=== PATIENT | male | born 1950 ===

== ENCOUNTER → 2021-06-16 09:14 | Outpatient (BNVA) | payer MEDICARE, SELFPAY | PROVIDERS: PCP Internal Medicine; Visit Provider Hospitalist | DX: I27.20 Pulmonary hypertension, unspecified (principal); G14 Postpolio syndrome; G47.33 Obstructive sleep apnea (adult) (pediatric); J96.11 Chronic respiratory failure with hypoxia; J98.4 Other disorders of lung; J30.0 Vasomotor rhinitis; G70.9 Myoneural disorder, unspecified; Z99.81 Dependence on supplemental oxygen | CPT/HCPCS: 99202 ==

== ENCOUNTER 2021-07-21 08:48 | Outpatient (REF) | payer MEDICARE, SELFPAY ==
--- NOTE | ~2021-07-21 | XR_ITS ---
EXAMINATION: XR CHEST CLINICAL INFORMATION: Other disorder of lung COMPARISON: None TECHNIQUE: 2 views of the chest were obtained. FINDINGS: There is a severe scoliosis. There is elevation of the right hemidiaphragm. The heart does not appear enlarged. The lungs are clear. There is no pleural effusion or pneumothorax. There are old right posterior rib fractures. There are degenerative changes of the spine. XR/XR chest 2V IMPRESSION: Limited exam. No evidence for acute disease in the chest. Severe scoliosis.
--- NOTE | 2021-07-21 13:34 | PFT_ITS ---
FLOWS: FEV1 43% of predicted at 0.98 L. FVC 29% of predicted at 1.17 L. FEV1 to FVC ratio of 0.84. No bronchodilator response. LUNG VOLUMES: Total lung capacity 44% of predicted at 2.84 L. Residual volume 73% of predicted at 1.66 L. Slow vital capacity 28% of predicted at 1.18 L. Expiratory reserve volume 7% of predicted at 0.09 L. Diffusion capacity is severely decreased, diffusion capacity adjust to being mildly decreased after correction for alveolar ventilation. IMPRESSION: Very severe restrictive ventilatory defect with no bronchodilator response. Decreased expiratory reserve volume suggests extrathoracic restriction, likely secondary to abdominal obesity. Combined decrease in diffusion capacity and restrictive ventilatory defect. Suggest underlying pulmonary parenchymal disease. Clinical correlation is advised. MD IRIS Swartz/MODL / [id number]
== END 2021-07-21 08:49 | disposition home or self-care (01) ==
LOC: HO.RESP 08:48
PROVIDERS: PCP Internal Medicine; Visit Provider Hospitalist
DX: J98.4 Other disorders of lung (principal); G70.9 Myoneural disorder, unspecified
CPT/HCPCS: 71046; 94060; 94727; 94729

== ENCOUNTER → 2021-08-11 08:56 | Outpatient (BNVA) | payer MEDICARE, SELFPAY | PROVIDERS: PCP Internal Medicine; Visit Provider Hospitalist | DX: G14 Postpolio syndrome (principal); G47.33 Obstructive sleep apnea (adult) (pediatric); J96.11 Chronic respiratory failure with hypoxia; J98.4 Other disorders of lung; J30.0 Vasomotor rhinitis; G70.9 Myoneural disorder, unspecified; I27.20 Pulmonary hypertension, unspecified; Z99.81 Dependence on supplemental oxygen | CPT/HCPCS: 99212 ==

== ENCOUNTER 2022-02-02 10:50 | Outpatient (REF) | payer MEDICARE, SELFPAY ==
[2022-02-02 11:04] LABS: MANUAL DIFF FLAG NO
[2022-02-02 11:10] LABS: Venous Blood Gas Refer to POC result
[2022-02-02 11:14] LABS: Basophils Percent Auto 0.4 % (0-2); Eosinophils Absolute Auto 0.1 X10*3/uL (0.0-0.4); Eosinophils Percent Auto 1.5 % (0-4); Hematocrit 41.6 % (42.0-52.0); Hemoglobin 13.4 g/dl (14.0-18.0); Imm Gran Abs Auto 0.03 X10*3/uL (0.00-0.03); Imm Gran Pct Auto 0.6 % (0.0-0.4); Lymphocytes Percent Auto 18.6 % (20-40); Mean Corpuscular HGB Conc 32.2 g/dl (31.0-36.0); Mean Corpuscular Hemoglobin 29.6 pg (27.0-33.0); Mean Platelet Volume 9.8 fL (9.4-12.4); Monocytes Absolute Auto 0.4 X10*3/uL (0.1-1.2); Monocytes Percent Auto 8.2 % (2-11); Neutrophils Absolute Auto 3.8 x10*3/uL (2.0-8.3); Neutrophils Percent Auto 70.7 % (45-73); Platelet Count 230 X10*3/uL (160-400); Red Blood Count 4.52 X10*6/uL (4.60-5.80); Red Cell Distribution Width 12.7 % (11.0-16.0); White Blood Count 5.4 X10*3/uL (4.8-10.8)
[2022-02-02 11:27] LABS: VBG Base Excess 7.8 mmol/L; VBG HCO3 34 mmol/L (22-26); VBG pCO2 56 mmHg; VBG pH 7.39 (7.32-7.43); VBG pO2 43 mmHg
[2022-02-02 11:39] LABS: Anion Gap 15 (12-20); Blood Urea Nitrogen 14 mg/dL (9-16); Calcium 8.9 mg/dL (8.4-10.2); Carbon Dioxide 34 mmol/L (22-29); Chloride 94 mmol/L (96-108); Estimated Glomerular Filt Rate > 60; Glucose Random 369 mg/dL (60-115); Potassium 4.4 mmol/L (3.3-5.1); Sodium 139 mmol/L (135-145)
[2022-02-02 11:59] LABS: Erythrocyte Sedimentation Rate 14 MM/HR (0-15)
== END 2022-02-02 10:51 | disposition home or self-care (01) ==
LOC: HO.LAB 10:50
PROVIDERS: Visit Provider Hospitalist
DX: G14 Postpolio syndrome (principal); G47.33 Obstructive sleep apnea (adult) (pediatric); I27.20 Pulmonary hypertension, unspecified; J96.11 Chronic respiratory failure with hypoxia; J98.4 Other disorders of lung; R00.0 Tachycardia, unspecified; G70.9 Myoneural disorder, unspecified
CPT/HCPCS: 36415; 80048; 82803; 85025; 85652; 99212

== ENCOUNTER → 2022-07-28 10:39 | Outpatient (BNVA) | payer MEDICARE, SELFPAY | PROVIDERS: PCP Internal Medicine; Visit Provider Hospitalist | DX: I27.20 Pulmonary hypertension, unspecified (principal); J96.11 Chronic respiratory failure with hypoxia; J98.4 Other disorders of lung; G70.9 Myoneural disorder, unspecified; J30.0 Vasomotor rhinitis; G47.33 Obstructive sleep apnea (adult) (pediatric); G14 Postpolio syndrome; Z99.81 Dependence on supplemental oxygen | CPT/HCPCS: 99212 ==

== ENCOUNTER 2023-02-02 09:56 | Outpatient (AMB) | payer MEDICARE, SELFPAY ==
[2023-02-02 10:08] VITALS: PULSE 89; O2SAT 95; BMI 33.7
--- NOTE | 2023-02-02 10:08 | A.OFFVIS_ITS ---
Intake Vital Signs 02/02/23 10:08 Height 5 ft 7 in Weight 215 lb BMI 33.7 Pulse 89 Pulse Source Pulse Oximeter Pulse Oximetry (%) 95 Oxygen Delivery Method Room Air Comment 3 Liters Oxygen([facility]) Intake Visit Reasons: Pulmonary Hypertension Crm Technical Lead Required: No Allergies No Known Allergies Allergy (Verified 02/02/23 10:10) HPI HPI Comments History of Present Illness Details The patient is a 72-year-old gentleman with a known history of Post- polio syndrome with right-sided weakness in addition to chronic restrictive lung disease and chronic respiratory failure currently on oxygen. The patient also has a history of obstructive sleep apnea and has been using and astral noninvasive ventilator at nighttime. Patient tolerated therapy well. He has been complaining worsening dyspnea on exertion. He does use a walker or cane. He also has a scooter and wheelchair at home. We did review his previous chest x-rays demonstrating scoliosis. Patient states that he also had multiple surgeries for scoliosis and for his other complications due to the polio. He had most of his surgeries at [facility] as a child. in addition to the scoliosis the patient also has an elevated rim diaphragm on the right side consistent with his neuromuscular disease. The patient also follows closely with Cardiology. There was a question of pulmonary hypertension. His last echocardiogram could not estimate the pressures. the patient has been having some difficulties expectorating. It is likely that the mucus plugging specially from the right lung has interfered with his respiratory capacity. The patient has tried different take need such as mono chest physical therapy in addition to an Acapella valve in the past. The patient will benefit from a percussion vest for better chest physical therapy to improve his lung capacity at this time. 08/11/2021 the patient is here for pulmonary follow-up visit. Overall he is doing about the same. He is using the percussion vest for mucus clearance. He should do this on a daily basis. We did review his chest x-ray demonstrating an elevated right hemidiaphragm with increased markings on the right lung with significant atelectasis. Also provided him with an incentive spirometer someone to try to expand the lung open as much as possible. Another option is a sip and puff device that he can connect to his noninvasive ventilator per the patient does uses noninvasive ventilator at nighttime in the therapy has been affecting beneficial and he is very adherent to it. At this point in taking needs it during the daytime and will hold off on the sip and puff based on the fact the patient is very mobile with his assist device. he did undergo pulmonary function studies demonstrating a significant restrictive process due to his neuromuscular disease. Due to that reason his diffusing capacity is decreased. His diffusing capacity almost corrects to normal when corrected for the alveolar volume. The patient continues uses oxygen with a portable oxygen concentrator with good effect. At this point there is no evidence of any CO2 narcosis. Will have to monitor closely his mentation and for the next visit will plan to request a venous gas. If the patient or his significant other notices any altered mental status prior to the next visit they are to call the office for an earlier evaluation specially to assess the CO2. In the meantime he did given information about pulmonary rehabilitation online. The going to look into it to start become more active with their respiratory strengthening. 02/02/2022 the [facility] Patient overall has been doing fairly well. He continues to have dyspnea on exertion. [id number] severity. Today he has been under more agitated. He also noticed that his heart rate has been climbing. No clear etiology for the tachycardia. He does uses noninvasive ventilator at nighttime with good effect. He does not always uses percussion vest. Although, the patient understands that this will help and provide better mucus clearance and good bronchopulmonary hygiene. He did have a venous CO2 done demonstrating chronic hypercarbic respiratory failure which appears to be well compensated with an elevated bicarbonate. We did review his last pulmonary function studies. The patient does have a severe restrictive ventilatory defect secondary to his neuromuscular disease. We again talked about pulmonary rehabilitation although this will be difficult for him to accomplish on a regular basis. Again, I reminded him to consider the online pulmonary rehabilitation. 07/28/2022 the patient is here for a pul onary follow-up visit. Overall the patient has been doing much better. He has been working on weight loss and healthy eating. He is wearing his compression stockings. He is trying to exercise more regularly. He is using the noninvasive ventilator at nighttime. This has been affecting beneficial. He does use it for all night more than 4 hours a night and he does get supplies from the [employer]. The patient has not required any respiratory assistance during the daytime so we can hold off on the sip and puff. Otherwise patient is without any other complaints will plan to follow-up in about 8 months. If the patient has any issues prior to that he is to call the office for an earlier assessment. 02/02/2023 the patient is here for a pul monary follow-up visit. The patient overall is in good spirits. Continues use the oxygen with good effect. The patient unfortunately had his portable oxygen concentrator breakdown. He is wondering if he can get a POC from his DME company. I did call his DME company and they do not supply them. Therefore he continue to use the oxygen tanks and will have to send his POC to the maker to see if they can fix it. He continues use a noninvasive ventilator at nighttime. This has been affecting beneficial. He has not been performing any exercise activity which I am concerned about. His total lung capacities already down to 44%. We talked about the importance of doing so. I did give him again the information about the online pulmonary rehabilitation. But, if this is effective patient should consider in-person s tudies. We plan to repeat his PFTs and ABG or venous gas in 6 months to assess his progress. 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 Chronic respiratory failure Deviated nasal septum Post-polio syndrome Obstructive sleep apnea Obesity Supplemental oxygen dependent Sinus of Valsalva aneurysm Tricuspid regurgitation Pulmonary hypertension Surgical History (Updated 06/16/21 @ 12:32 by Keila Saenz PA-C) History of tonsillectomy History of cardiac catheterization Social History (Updated 06/16/21 @ 09:52 by DARRYN Mena) Patient Tobacco Use Status: Never used Tobacco Review of Systems Const Denies headache(s) and Reports weight loss Eyes Denies change in vision ENT Denies headache(s) Card Denies chest pain, Denies dyspnea and Reports dyspnea on exertion Resp Denies cough, Denies dyspnea, Reports dyspnea on exertion and Denies wheezing GI Reports no additional complaints Musc Reports abnormal gait and Reports deformity Skin/Breast Denies rash Neuro Reports abnormal gait and Denies headache(s) Aller/Immun Denies wheezing Physical Exam Vital Signs: Last Vital Signs Pulse 89 02/02/23 10:08 Pulse Ox 95 02/02/23 10:08 Oxygen Delivery Method Room Air 02/02/23 10:08 BMI result Body Mass Index 33.7 Const General: alert Neck Neck: Yes normal visual inspection, Yes full ROM and Yes no lymphadenopathy Chest Chest palpation & inspection: normal inspection of the chest Resp Auscultation: diminished lung sounds Cardio Rate: tachycardic Rhythm: regular rhythm Heart sounds: S1 normal heart sound present and S2 normal heart sound present GI Palpation (GI): Soft to palpation and nontender Auscultation: normal bowel sounds Skin General skin exam: rashes and/or lesions noted Assessment & Plan Assessment & Plan (1) Post-polio syndrome: Code(s): G14 - Postpolio syndrome (2) Obstructive sleep apnea: Comment: ([facility] Sleep Test 08/16/18 - AHI 23.9) Code(s): G47.33 - Obstructive sleep apnea (adult) (pediatric) (3) Supplemental oxygen dependent: Code(s): Z99.81 - Dependence on supplemental oxygen (4) Pulmonary hypertension: Code(s): I27.20 - Pulmonary hypertension, unspecified (5) Chronic respiratory failure: Code(s): J96.10 - Chronic respiratory failure, unspecified whether with hypoxia or hypercapnia Qualifiers: Respiratory failure complication: hypoxia Qualified Code(s): J96.11 - Chronic respiratory failure with hypoxia (6) Restrictive lung mechanics due to neuromuscular disease: Code(s): J98.4 - Other disorders of lung; G70.9 - Myoneural disorder, unspecified (7) Vasomotor rhinitis: Code(s): J30.0 - Vasomotor rhinitis Plan continue oxygen supplementation continue sleep, conserving device, Needs to have his POC serviced. ([facility] does not provide POCs) noninvasive ventilator at nighttime repeat PFTs repeat blood gas continue percussion vest to provide better bronchopulmonary hygiene and improvement in his lung capacity continue ipratropium nasal spray for vasomotor rhinitis pulmonary rehabilitation online follow-up in 6 months Orders: Orders Venous Blood Gas 4 Months G70.9 - Myoneural disorder, unspecified, J98.4 - Other disorders of lung Basic Metabolic Panel 4 Months G70.9 - Myoneural disorder, unspecified, J98.4 - Other disorders of lung PFT pulmonary function test 4 Months G70.9 - Myoneural disorder, unspecified, J98.4 - Other disorders of lung Complete Blood Count Auto Diff 4 Months G70.9 - Myoneural disorder, unspecified, J98.4 - Other disorders of lung Coding Level of Care Code Est Pt Level 4 (50303) Diagnoses Post-polio syndrome G14 Obstructive sleep apnea G47.33 Supplemental oxygen dependent Z99.81 Pulmonary hypertension I27.20 Chronic respiratory failure with hypoxia J96.11 Respiratory failure complication: hypoxia Restrictive lung mechanics due to neuromuscular disease J98.4; G70.9 Vasomotor rhinitis J30.0 Time Spent (min) 16
== END 2023-02-02 10:29 | disposition home or self-care (01) ==
PROVIDERS: PCP Internal Medicine; Visit Provider Hospitalist
DX: G14 Postpolio syndrome (principal); G47.33 Obstructive sleep apnea (adult) (pediatric); Z99.81 Dependence on supplemental oxygen; I27.20 Pulmonary hypertension, unspecified; J96.11 Chronic respiratory failure with hypoxia; J98.4 Other disorders of lung; G70.9 Myoneural disorder, unspecified; J30.0 Vasomotor rhinitis
CPT/HCPCS: 99214

== ENCOUNTER → 2023-02-02 09:56 | Outpatient (BNVA) | payer MEDICARE, SELFPAY | PROVIDERS: PCP Internal Medicine; Visit Provider Hospitalist | DX: I27.20 Pulmonary hypertension, unspecified (principal); J96.11 Chronic respiratory failure with hypoxia; J30.0 Vasomotor rhinitis; J98.4 Other disorders of lung; G14 Postpolio syndrome; G47.33 Obstructive sleep apnea (adult) (pediatric); G70.9 Myoneural disorder, unspecified; Z99.81 Dependence on supplemental oxygen | CPT/HCPCS: 99212 ==

== ENCOUNTER 2023-05-20 | Outpatient (REF) | payer MEDICARE, SELFPAY ==
[2023-05-20 11:55] VITALS: PULSE 108; RESP 16; O2SAT 95
== END 2023-05-20 00:01 | disposition home or self-care (01) ==
LOC: HO.RESP
PROVIDERS: PCP Internal Medicine; Visit Provider Hospitalist
DX: J98.4 Other disorders of lung (principal); G70.9 Myoneural disorder, unspecified
CPT/HCPCS: 94010; 94618; 94640; 94727; 94729

== ENCOUNTER 2023-05-20 13:39 | Outpatient (REF) | payer MEDICARE, SELFPAY ==
--- NOTE | 2023-05-20 16:48 | PFT_ITS ---
Flows: FEV1: 41 % of predicted at 1.19 L FVC: 38 % of predicted at 1.44 L FEV1/FVC: 83 % Bronchodilator response: Absent Volumes: No lung volume measurements available secondary to a technical issue. Diffusion capacity: Severely decreased, corrects to normal after adjustment for alveolar ventilation. Impression: No obstructive ventilatory defect. Spirometry suggests underlying restrictive ventilatory defect. No lung volume measurements available secondary to a technical issue. Decreased diffusion capacity together with likely restrictive ventilatory defect suggests pulmonary parenchymal disease. Clinical correlation advised. MTDD
[2023-06-08 11:19] VITALS: PULSE 88; RESP 16; O2SAT 99
== END 2023-05-20 13:40 | disposition home or self-care (01) ==
LOC: HO.RESP 13:39
PROVIDERS: Visit Provider Hospitalist
DX: J98.4 Other disorders of lung (principal); G70.9 Myoneural disorder, unspecified
CPT/HCPCS: 94010; 94640; 94727; 94729

== ENCOUNTER → 2023-05-20 16:48 | Outpatient (BNV) | payer MEDICARE, SELFPAY | PROVIDERS: Visit Provider Internal Medicine Pulmonary Disease | DX: J98.4 Other disorders of lung (principal); G70.9 Myoneural disorder, unspecified | CPT/HCPCS: 94060; 94729 ==

== ENCOUNTER 2023-06-08 10:23 | Outpatient (AMB) | payer MEDICARE, SELFPAY ==
[2023-06-08 10:39] VITALS: PULSE 92; O2SAT 91; BMI 31.6
--- NOTE | 2023-06-08 10:39 | MHC.OFFVIS ---
Intake Vital Signs 06/08/23 10:39 Height 5 ft 7 in Weight 202 lb BMI 31.6 Pulse 92 Pulse Source Pulse Oximeter Pulse Oximetry (%) 91 L Oxygen Delivery Method Room Air Comment 3 Liters Oxygen([facility]) Intake Visit Reasons: Pulmonary Hypertension Marketing Agent Required: No Allergies No Known Allergies Allergy (Verified 06/08/23 10:41) HPI HPI Comments History of Present Illness Details The patient is a 73-year-old gentleman with a known history of Post-polio syndrome with right-sided weakness in addition to chronic restrictive lung disease and chronic respiratory failure currently on oxygen. The patient also has a history of obstructive sleep apnea and has been using and astral noninvasive ventilator at nighttime. Patient tolerated therapy well. He has been complaining worsening dyspnea on exertion. He does use a walker or cane. He also has a scooter and wheelchair at home. We did review his previous chest x-rays demonstrating scoliosis. Patient states that he also had multiple surgeries for scoliosis and for his other complications due to the polio. He had most of his surgeries at [facility] as a child. in addition to the scoliosis the patient also has an elevated rim diaphragm on the right side consistent with his neuromuscular disease. The patient also follows closely with Cardiology. There was a question of pulmonary hypertension. His last echocardiogram could not estimate the pressures. the patient has been having some difficulties expectorating. It is likely that the mucus plugging specially from the right lung has interfered with his respiratory capacity. The patient has tried different take need such as mono chest physical therapy in addition to an Acapella valve in the past. The patient will benefit from a percussion vest for better chest physical therapy to improve his lung capacity at this time. 08/11/2021 the patient is here for pulmonary follow-up visit. Overall he is doing about the same. He is using the percussion vest for mucus clearance. He should do this on a daily basis. We did review his chest x-ray demonstrating an elevated right hemidiaphragm with increased markings on the right lung with significant atelectasis. Also provided him with an incentive spirometer someone to try to expand the lung open as much as possible. Another option is a sip and puff device that he can connect to his noninvasive ventilator per the patient does uses noninvasive ventilator at nighttime in the therapy has been affecting beneficial and he is very adherent to it. At this point in taking needs it during the daytime and will hold off on the sip and puff based on the fact the patient is very mobile with his assist device. he did undergo pulmonary function studies demonstrating a significant restrictive process due to his neuromuscular disease. Due to that reason his diffusing capacity is decreased. His diffusing capacity almost corrects to normal when corrected for the alveolar volume. The patient continues uses oxygen with a portable oxygen concentrator with good effect. At this point there is no evidence of any CO2 narcosis. Will have to monitor closely his mentation and for the next visit will plan to request a venous gas. If the patient or his significant other notices any altered mental status prior to the next visit they are to call the office for an earlier evaluation specially to assess the CO2. In the meantime he did given information about pulmonary rehabilitation online. The going to look into it to start become more active with their respiratory strengthening. 02/02/2022 the patient is here for a pulmonary follow-up visit. Patient overall has been doing fairly well. He continues to have dyspnea on exertion. Jynq-mx-haxpctax severity. Today he has been under more agitated. He also noticed that his heart rate has been climbing. No clear etiology for the tachycardia. He does uses noninvasive ventilator at nighttime with good effect. He does not always uses percussion vest. Although, the patient understands that this will help and provide better mucus clearance and good bronchopulmonary hygiene. He did have a venous CO2 done demonstrating chronic hypercarbic respiratory failure which appears to be well compensated with an elevated bicarbonate. We did review his last pulmonary function studies. The patient does have a severe restrictive ventilatory defect secondary to his neuromuscular disease. We again talked about pulmonary rehabilitation although this will be difficult for him to accomplish on a regular basis. Again, I reminded him to consider the online pulmonary rehabilitation. 07/28/2022 the patient is here for a pulmonary follow-up visit. Overall the patient has been doing much better. He has been working on weight loss and healthy eating. He is wearing his compression stockings. He is trying to exercise more regularly. He is using the noninvasive ventilator at nighttime. This has been affecting beneficial. He does use it for all night more than 4 hours a night and he does get supplies from the [employer]. The patient has not required any respiratory assistance during the daytime so we can hold off on the sip and puff. Otherwise patient is without any other complaints will plan to follow-up in about 8 months. If the patient has any issues prior to that he is to call the office for an earlier assessment. 02/02/2023 the patient is here for a pulmonary follow-up visit. The patient overall is in good spirits. Continues use the oxygen with good effect. The patient unfortunately had his portable oxygen concentrator breakdown. He is wondering if he can get a POC from his DME company. I did call his DME company and they do not supply them. Therefore he continue to use the oxygen tanks and will have to send his POC to the maker to see if they can fix it. He continues use a noninvasive ventilator at nighttime. This has been affecting beneficial. He has not been performing any exercise activity which I am concerned about. His total lung capacities already down to 44%. We talked about the importance of doing so. I did give him again the information about the online pulmonary rehabilitation. But, if this is effective patient should consider in-person studies. We plan to repeat his PFTs and ABG or venous gas in 6 months to assess his progress. 06/08/2023 the patient is here for a pulmonary follow-up visit. Overall he is doing well. He continues use the oxygen at 3 L. He also has been using noninvasive ventilator at nighttime with good effect. The patient is working on weight loss which is helping. We did review his recent pulmonary function studies. Appears that his FVC and FEV1 both improved suggesting that is restrictive lung disease is a little better. Although still severe. He also has a severe diffusion impairment secondary to the restriction. The patient will would benefit from pulmonary rehabilitation. He is post polio and does have his physical limitations but I do believe that building up his respiratory capacity and endurance will be very effective in further improving his lung capacity. The patient is agreeable at this time. We did look at the last blood gas. The patient does have some degree of hypercarbia. Will go ahead and repeat the blood gas later on after rehabilitation. Patient is using compression stockings which is helping his lower extremity edema. Overall he is doing well. Will follow-up in 6 months. 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 Chronic respiratory failure Deviated nasal septum Post-polio syndrome Obstructive sleep apnea Obesity Supplemental oxygen dependent Sinus of Valsalva aneurysm Tricuspid regurgitation Pulmonary hypertension Surgical History (Updated 06/16/21 @ 12:32 by Keila Saenz PA-C) History of tonsillectomy History of cardiac catheterization Social History (Updated 06/16/21 @ 09:52 by DARRYN Mena) Patient Tobacco Use Status: Never used Tobacco Review of Systems Const Denies headache(s) and Reports weight loss Eyes Denies change in vision ENT Denies headache(s) Card Denies chest pain, Denies dyspnea and Reports dyspnea on exertion Resp Denies cough, Denies dyspnea, Reports dyspnea on exertion and Denies wheezing GI Reports no additional complaints Musc Reports abnormal gait and Reports deformity Skin/Breast Denies rash Neuro Reports abnormal gait and Denies headache(s) Aller/Immun Denies wheezing Physical Exam Vital Signs: Last Vital Signs Pulse 92 06/08/23 10:39 Pulse Ox 91 L 06/08/23 10:39 Oxygen Delivery Method Room Air 06/08/23 10:39 BMI result Body Mass Index 31.6 Const General: alert Neck Neck: Yes normal visual inspection, Yes full ROM and Yes no lymphadenopathy Chest Chest palpation & inspection: normal inspection of the chest Resp Auscultation: diminished lung sounds Cardio Rate: tachycardic Rhythm: regular rhythm Heart sounds: S1 normal heart sound present and S2 normal heart sound present GI Palpation (GI): Soft to palpation and nontender Auscultation: normal bowel sounds Skin General skin exam: rashes and/or lesions noted Assessment & Plan Assessment & Plan (1) Post-polio syndrome: Code(s): G14 - Postpolio syndrome (2) Obstructive sleep apnea: Comment: ([facility] Sleep Test 08/16/18 - AHI 23.9) Code(s): G47.33 - Obstructive sleep apnea (adult) (pediatric) (3) Supplemental oxygen dependent: Code(s): Z99.81 - Dependence on supplemental oxygen (4) Pulmonary hypertension: Code(s): I27.20 - Pulmonary hypertension, unspecified (5) Chronic respiratory failure: Code(s): J96.10 - Chronic respiratory failure, unspecified whether with hypoxia or hypercapnia Qualifiers: Respiratory failure complication: hypoxia Qualified Code(s): J96.11 - Chronic respiratory failure with hypoxia (6) Restrictive lung mechanics due to neuromuscular disease: Code(s): J98.4 - Other disorders of lung; G70.9 - Myoneural disorder, unspecified (7) Vasomotor rhinitis: Code(s): J30.0 - Vasomotor rhinitis Plan continue oxygen supplementation continue sleep, conserving device, Needs to have his POC serviced. noninvasive ventilator at nighttime repeat blood gas continue percussion vest to provide better bronchopulmonary hygiene and improvement in his lung capacity continue ipratropium nasal spray for vasomotor rhinitis start pulmonary rehabilitation in person follow-up in 6 months Orders: Orders Pulmonary Rehab Today G14 - Postpolio syndrome, G70.9 - Myoneural disorder, unspecified, I27.20 - Pulmonary hypertension, unspecified, J98.4 - Other disorders of lung Coding Level of Care Code Est Pt Level 4 (35600) Diagnoses Post-polio syndrome G14 Obstructive sleep apnea G47.33 Supplemental oxygen dependent Z99.81 Pulmonary hypertension I27.20 Chronic respiratory failure with hypoxia J96.11 Respiratory failure complication: hypoxia Restrictive lung mechanics due to neuromuscular disease J98.4; G70.9 Vasomotor rhinitis J30.0 Time Spent (min) 18
== END 2023-06-08 11:00 | disposition home or self-care (01) ==
PROVIDERS: PCP Internal Medicine; Visit Provider Hospitalist
DX: G14 Postpolio syndrome (principal); G47.33 Obstructive sleep apnea (adult) (pediatric); Z99.81 Dependence on supplemental oxygen; I27.20 Pulmonary hypertension, unspecified; J96.11 Chronic respiratory failure with hypoxia; J98.4 Other disorders of lung; G70.9 Myoneural disorder, unspecified; J30.0 Vasomotor rhinitis
CPT/HCPCS: 99214

== ENCOUNTER → 2023-06-08 10:23 | Outpatient (BNVA) | payer MEDICARE, SELFPAY | PROVIDERS: PCP Internal Medicine; Visit Provider Hospitalist | DX: G14 Postpolio syndrome (principal); G47.33 Obstructive sleep apnea (adult) (pediatric); I27.20 Pulmonary hypertension, unspecified; J96.10 Chronic respiratory failure, unspecified whether with hypoxia or hypercapnia; J98.4 Other disorders of lung; J30.0 Vasomotor rhinitis; Z99.81 Dependence on supplemental oxygen | CPT/HCPCS: 99212 ==

== ENCOUNTER 2023-12-13 10:46 | Outpatient (AMB) | payer MEDICARE, SELFPAY ==
[2023-12-13 10:54] VITALS: BP 146/70; PULSE 89; O2SAT 97; BMI 31.4
--- NOTE | 2023-12-13 10:54 | MHC.OFFVIS ---
Vital Signs 12/13/23 10:54 Height 5 ft 7 in Weight 200 lb 9.93 oz BMI 31.4 BP 146/70 H Blood Pressure Location Lt brachial Position Sitting Pulse 89 Pulse Source Pulse Oximeter Pulse Oximetry (%) 97 Oxygen Delivery Method Room Air Comment 3 Liters Oxygen([facility]) Intake Visit Reasons: Pulmonary Hypertension Allergies No Known Allergies Allergy (Verified 12/13/23 10:57) HPI Comments Details: The patient is a 73-year-old gentleman with a known history of Post-polio syndrome with right-sided weakness in addition to chronic restrictive lung disease and chronic respiratory failure currently on oxygen. The patient also has a history of obstructive sleep apnea and has been using and astral noninvasive ventilator at nighttime. Patient tolerated therapy well. He has been complaining worsening dyspnea on exertion. He does use a walker or cane. He also has a scooter and wheelchair at home. We did review his previous chest x-rays demonstrating scoliosis. Patient states that he also had multiple surgeries for scoliosis and for his other complications due to the polio. He had most of his surgeries at [facility] as a child. in addition to the scoliosis the patient also has an elevated rim diaphragm on the right side consistent with his neuromuscular disease. The patient also follows closely with Cardiology. There was a question of pulmonary hypertension. His last echocardiogram could not estimate the pressures. the patient has been having some difficulties expectorating. It is likely that the mucus plugging specially from the right lung has interfered with his respiratory capacity. The patient has tried different take need such as mono chest physical therapy in addition to an Acapella valve in the past. The patient will benefit from a percussion vest for better chest physical therapy to improve his lung capacity at this time. 08/11/2021 the patient is here for pulmonary follow-up visit. Overall he is doing about the same. He is using the percussion vest for mucus clearance. He should do this on a daily basis. We did review his chest x-ray demonstrating an elevated right hemidiaphragm with increased markings on the right lung with significant atelectasis. Also provided him with an incentive spirometer someone to try to expand the lung open as much as possible. Another option is a sip and puff device that he can connect to his noninvasive ventilator per the patient does uses noninvasive ventilator at nighttime in the therapy has been affecting beneficial and he is very adherent to it. At this point in taking needs it during the daytime and will hold off on the sip and puff based on the fact the patient is very mobile with his assist device. he did undergo pulmonary function studies demonstrating a significant restrictive process due to his neuromuscular disease. Due to that reason his diffusing capacity is decreased. His diffusing capacity almost corrects to normal when corrected for the alveolar volume. The patient continues uses oxygen with a portable oxygen concentrator with good effect. At this point there is no evidence of any CO2 narcosis. Will have to monitor closely his mentation and for the next visit will plan to request a venous gas. If the patient or his significant other notices any altered mental status prior to the next visit they are to call the office for an earlier evaluation specially to assess the CO2. In the meantime he did given information about pulmonary rehabilitation online. The going to look into it to start become more active with their respiratory strengthening. 02/02/2022 the patient is here for a pulmonary follow-up visit. Patient overall has been doing fairly well. He continues to have dyspnea on exertion. [id number] severity. Today he has been under more agitated. He also noticed that his heart rate has been climbing. No clear etiology for the tachycardia. He does uses noninvasive ventilator at nighttime with good effect. He does not always uses percussion vest. Although, the patient understands that this will help and provide better mucus clearance and good bronchopulmonary hygiene. He did have a venous CO2 done demonstrating chronic hypercarbic respiratory failure which appears to be well compensated with an elevated bicarbonate. We did review his last pulmonary function studies. The patient does have a severe restrictive ventilatory defect secondary to his neuromuscular disease. We again talked about pulmonary rehabilitation although this will be difficult for him to accomplish on a regular basis. Again, I reminded him to consider the online pulmonary rehabilitation. 07/28/2022 the patient is here for a pulmonary follow-up visit. Overall the patient has been doing much better. He has been working on weight loss and healthy eating. He is wearing his compression stockings. He is trying to exercise more regularly. He is using the noninvasive ventilator at nighttime. This has been affecting beneficial. He does use it for all night more than 4 hours a night and he does get supplies from the [employer]. The patient has not required any respiratory assistance during the daytime so we can hold off on the sip and puff. Otherwise patient is without any other complaints will plan to follow-up in about 8 months. If the patient has any issues prior to that he is to call the office for an earlier assessment. 02/02/2023 the patient is here for a pulmonary follow-up visit. The patient overall is in good spirits. Continues use the oxygen with good effect. The patient unfortunately had his portable oxygen concentrator breakdown. He is wondering if he can get a POC from his DME company. I did call his DME company and they do not supply them. Therefore he continue to use the oxygen tanks and will have to send his POC to the maker to see if they can fix it. He continues use a noninvasive ventilator at nighttime. This has been affecting beneficial. He has not been performing any exercise activity which I am concerned about. His total lung capacities already down to 44%. We talked about the importance of doing so. I did give him again the information about the online pulmonary rehabilitation. But, if this is effective patient should consider in-person studies. We plan to repeat his PFTs and ABG or venous gas in 6 months to assess his progress. 06/08/2023 the patient is here for a pulmonary follow-up visit. Overall he is doing well. He continues use the oxygen at 3 L. He also has been using noninvasive ventilator at nighttime with good effect. The patient is working on weight loss which is helping. We did review his recent pulmonary function studies. Appears that his FVC and FEV1 both improved suggesting that is restrictive lung disease is a little better. Although still severe. He also has a severe diffusion impairment secondary to the restriction. The patient will would benefit from pulmonary rehabilitation. He is post polio and does have his physical limitations but I do believe that building up his respiratory capacity and endurance will be very effective in further improving his lung capacity. The patient is agreeable at this time. We did look at the last blood gas. The patient does have some degree of hypercarbia. Will go ahead and repeat the blood gas later on after rehabilitation. Patient is using compression stockings which is helping his lower extremity edema. Overall he is doing well. Will follow-up in 6 months. 12/13/2023 the patient is here for a pulmonary follow-up visit. Overall he is doing well. He completed pulmonary rehabilitation. Although he needs to continue exercising on a regular basis at home. He did get some new orthotics and did have significant amount of weight loss in lower extremity edema has improved dramatically so the patient is able to do it a little better and safer. He is going to go for walks with his . I also did give her information about the online pulmonary rehab, pulmonary wellness that organ he is going to look into those programs in order to stay active with his lung. The patient also needs to continue with chest physical therapy. He does have percussion vest that he needs to use more regularly. The noninvasive ventilator at nighttime is very affecting beneficial. He uses it every night. And this will continue to use. He is going to go for blood work today and will see what his blood gas is doing to make sure that his CO2 is not any higher. The patient was seen by Cardiology. At least from a pulmonary standpoint the patient does have significant restrictive lung disease due to his neuromuscular disease although he is at a stable baseline. Will plan to follow-up in 6 months. The patient has any issues prior to that call for an earlier assessment. 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 Chronic respiratory failure Deviated nasal septum Post-polio syndrome Obstructive sleep apnea Obesity Supplemental oxygen dependent Sinus of Valsalva aneurysm Tricuspid regurgitation Pulmonary hypertension Surgical History (Updated 06/16/21 @ 12:32 by Keila Saenz PA-C) History of tonsillectomy History of cardiac catheterization Social History (Updated 06/16/21 @ 09:52 by DARRYN Mena) Patient Tobacco Use Status: Never used Tobacco Review of Systems Const Denies headache(s) and Reports weight loss Eyes Denies change in vision ENT Denies headache(s) Card Denies chest pain, Denies dyspnea and Reports dyspnea on exertion Resp Denies cough, Denies dyspnea, Reports dyspnea on exertion and Denies wheezing GI Reports no additional complaints Musc Reports abnormal gait and Reports deformity Skin/Breast Denies rash Neuro Reports abnormal gait and Denies headache(s) Aller/Immun Denies wheezing Physical Exam Vital Signs: Last Vital Signs Pulse 89 12/13/23 10:54 BP 146/70 H 12/13/23 10:54 Pulse Ox 97 12/13/23 10:54 Oxygen Delivery Method Room Air 12/13/23 10:54 BMI result Body Mass Index 31.4 Const General: alert Neck Neck: Yes normal visual inspection, Yes full ROM and Yes no lymphadenopathy Chest Chest palpation & inspection: normal inspection of the chest Resp Effort & Inspection: normal respiratory effort Auscultation: diminished lung sounds Cardio Rate: tachycardic Rhythm: regular rhythm Heart sounds: S1 normal heart sound present and S2 normal heart sound present GI Palpation (GI): Soft to palpation and nontender Auscultation: normal bowel sounds Skin General skin exam: rashes and/or lesions noted Assessment & Plan Assessment & Plan (1) Post-polio syndrome: Code(s): G14 - Postpolio syndrome Category: Medical (2) Obstructive sleep apnea: Comment: ([facility] Sleep Test 08/16/18 - AHI 23.9) Code(s): G47.33 - Obstructive sleep apnea (adult) (pediatric) Category: Medical (3) Supplemental oxygen dependent: Code(s): Z99.81 - Dependence on supplemental oxygen Category: Medical (4) Pulmonary hypertension: Comment: WHO group 3 Code(s): I27.20 - Pulmonary hypertension, unspecified Category: Medical (5) Chronic respiratory failure: Code(s): J96.10 - Chronic respiratory failure, unspecified whether with hypoxia or hypercapnia Category: Medical Qualifiers: Respiratory failure complication: hypoxia Qualified Code(s): J96.11 - Chronic respiratory failure with hypoxia (6) Restrictive lung mechanics due to neuromuscular disease: Code(s): J98.4 - Other disorders of lung; G70.9 - Myoneural disorder, unspecified Category: Medical (7) Vasomotor rhinitis: Code(s): J30.0 - Vasomotor rhinitis Category: Medical Plan continue oxygen supplementation continue sleep, conserving device, Needs to have his POC serviced. noninvasive ventilator at nighttime repeat blood gas continue percussion vest to provide better bronchopulmonary hygiene and improvement in his lung capacity continue ipratropium nasal spray for vasomotor rhinitis completed pulmonary rehabilitation in person, needs to continue exercise regimen follow-up in 6 months Coding Level of Care Code Est Pt Level 4 (67592) Complex EM visit Add On G2211 Diagnoses Post-polio syndrome G14 Obstructive sleep apnea G47.33 Supplemental oxygen dependent Z99.81 Pulmonary hypertension I27.20 Chronic respiratory failure with hypoxia J96.11 Respiratory failure complication: hypoxia Restrictive lung mechanics due to neuromuscular disease J98.4; G70.9 Vasomotor rhinitis J30.0 Time Spent (min) 18
== END 2023-12-13 11:24 | disposition home or self-care (01) ==
PROVIDERS: PCP Internal Medicine; Visit Provider Hospitalist
DX: G14 Postpolio syndrome (principal); G47.33 Obstructive sleep apnea (adult) (pediatric); Z99.81 Dependence on supplemental oxygen; I27.20 Pulmonary hypertension, unspecified; J96.11 Chronic respiratory failure with hypoxia; J98.4 Other disorders of lung; G70.9 Myoneural disorder, unspecified; J30.0 Vasomotor rhinitis
CPT/HCPCS: 99214; G2211

== ENCOUNTER 2023-12-13 10:46 | Outpatient (REF) | payer MEDICARE, SELFPAY ==
[2023-12-13 11:51] LABS: MANUAL DIFF FLAG NO
[2023-12-13 12:02] LABS: Venous Blood Gas Refer to POC result
[2023-12-13 12:09] LABS: VBG pCO2 56 mmHg; VBG pH 7.36 (7.32-7.43)
[2023-12-13 12:10] LABS: VBG Base Excess 5.2 mmol/L; VBG HCO3 32 mmol/L (22-26); VBG pO2 27 mmHg
[2023-12-13 12:15] LABS: Basophils Percent Auto 0.3 % (0-2); Eosinophils Absolute Auto 0.1 X10*3/uL (0.0-0.4); Eosinophils Percent Auto 1.4 % (0-4); Hematocrit 42.6 % (42.0-52.0); Hemoglobin 14.1 g/dl (14.0-18.0); Imm Gran Abs Auto 0.03 X10*3/uL (0.00-0.03); Imm Gran Pct Auto 0.5 % (0.0-0.4); Lymphocytes Absolute Auto 1.6 X10*3/uL (1.2-4.9); Lymphocytes Percent Auto 24.5 % (20-40); Mean Corpuscular HGB Conc 33.1 g/dl (31.0-36.0); Mean Corpuscular Hemoglobin 30.1 pg (27.0-33.0); Mean Platelet Volume 9.8 fL (9.4-12.4); Monocytes Absolute Auto 0.4 X10*3/uL (0.1-1.2); Monocytes Percent Auto 6.7 % (2-11); Neutrophils Absolute Auto 4.3 x10*3/uL (2.0-8.3); Neutrophils Percent Auto 66.6 % (45-73); Platelet Count 246 X10*3/uL (160-400); Red Blood Count 4.68 X10*6/uL (4.60-5.80); Red Cell Distribution Width 12.2 % (11.0-16.0); White Blood Count 6.4 X10*3/uL (4.8-10.8)
[2023-12-13 12:47] LABS: Anion Gap 11 (12-20); Blood Urea Nitrogen 18 mg/dL (9-16); Calcium 9.7 mg/dL (8.4-10.2); Carbon Dioxide 33 mmol/L (22-29); Chloride 102 mmol/L (96-108); Estimated Glomerular Filt Rate > 60; Glucose Random 192 mg/dL (60-115); Potassium 4.5 mmol/L (3.3-5.1); Sodium 141 mmol/L (135-145)
== END 2023-12-13 10:47 | disposition home or self-care (01) ==
LOC: HO.LAB 10:46
PROVIDERS: PCP Internal Medicine; Visit Provider Hospitalist
DX: G14 Postpolio syndrome (principal); J98.4 Other disorders of lung; G70.9 Myoneural disorder, unspecified; G47.33 Obstructive sleep apnea (adult) (pediatric); Z99.81 Dependence on supplemental oxygen; I27.20 Pulmonary hypertension, unspecified; J30.0 Vasomotor rhinitis
CPT/HCPCS: 36415; 80048; 82803; 85025; 99212

== ENCOUNTER 2024-06-13 10:31 | Outpatient (AMB) | payer MEDICARE, SELFPAY ==
[2024-06-13 10:53] VITALS: BP 148/76; PULSE 108; O2SAT 98; BMI 31.2
--- NOTE | 2024-06-13 10:53 | A.OFFVIS_ITS ---
Vital Signs 06/13/24 10:53 Height 5 ft 7 in Weight 199 lb 8.293 oz BMI 31.2 BP 148/76 H Blood Pressure Location Lt brachial Position Sitting Pulse 108 H Pulse Source Pulse Oximeter Pulse Oximetry (%) 98 Oxygen Delivery Method Nasal Cannula Oxygen Flow Rate 2 Intake Visit Reasons: Pulmonary Hypertension Allergies No Known Allergies Allergy (Verified 06/13/24 10:57) HPI Comments Details: The patient is a 74-year-old gentleman with a known history of Post-polio syndrome with right-sided weakness in addition to chronic restrictive lung disease and chronic respiratory failure currently on oxygen. The patient also has a history of obstructive sleep apnea and has been using and astral n oninvasive ventilator at nighttime. Patient tolerated therapy well. He has been complaining worsening dyspnea on exertion. He does use a walker or cane. He also has a scooter and wheelchair at home. We did review his previous chest x-rays demonstrating scoliosis. Patient states that he also had multiple surgeries for scoliosis and for his other complications due to the polio. He had most of his surgeries at [facility] as a child. in addition to the scoliosis the patient also has an elevated rim diaphragm on the right side consistent with his neuromuscular disease. The patient also follows closely with Cardiology. There was a question of pulmonary hypertension. His last echocardiogram could not estimate the pressures. the patient has been having some difficulties expectorating. It is likely that the mucus plugging specially from the right lung has interfered with his respiratory capacity. The patient has tried different take need such as mono chest physical therapy in addition to an Acapella valve in the past. The patient will benefit from a percussion vest for better chest physical therapy to improve his lung capacity at this time. 08/11/2021 the patient is here for pulmonary follow-up visit. Overall he is doing about the same. He is using the percussion vest for mucus clearance. He should do this on a daily basis. We did review his chest x-ray demonstrating an elevated right hemidiaphragm with increased markings on the right lung with significant atelectasis. Also provided him with an incentive spirometer someone to try to expand the lung open as much as possible. Another option is a sip and puff device that he can connect to his noninvasive ventilator per the patient does uses noninvasive ventilator at nighttime in the therapy has been affecting beneficial and he is very adherent to it. At this point in taking needs it during the daytime and will hold off on the sip and puff based on the fact the patient is very mobile with his assist device. he did undergo pulmonary function studies demonstrating a significant restrictive process due to his neuromuscular disease. Due to that reason his diffusing capacity is decreased. His diffusing capacity almost corrects to normal when corrected for the alveolar volume. The patient continues uses oxygen with a portable oxygen concentrator with good effect. At this point there is no evidence of any CO2 narcosis. Will have to monitor closely his mentation and for the next visit will plan to request a venous gas. If the patient or his significant other notices any altered mental status prior to the next visit they are to call the office for an earlier evaluation specially to assess the CO2. In the meantime he did given information about pulmonary rehabilitation online. The going to look into it to start become more active with their respiratory strengthening. 02/02/2022 the patient is here for a pulmonary follow-up visit. Patient overall has been doing fairly well. He continues to have dyspnea on exertion. [id number] severity. Today he has been under more agitated. He also noticed that his heart rate has been climbing. No clear etiology for the tachycardia. He does uses noninvasive ventilator at nighttime with good effect. He does not always uses percussion vest. Although, the patient understands that this will help and provide better mucus clearance and good bronchopulmonary hygiene. He did have a venous CO2 done demonstrating chronic hypercarbic respiratory failure which appears to be well compensated with an elevated bicarbonate. We did review his last pulmonary function studies. The patient does have a severe restrictive ventilatory defect secondary to his neuromuscular disease. We again talked about pulmonary rehabilitation although this will be difficult for him to accomplish on a regular basis. Again, I reminded him to consider the online pulmonary rehabilitation. 07/28/2022 the patient is here for a pulmonary follow-up visit. Overall the patient has been doing much better. He has been working on weight loss and healthy eating. He is wearing his compression stockings. He is trying to exercise more regularly. He is using the noninvasive ventilator at nighttime. This has been affecting beneficial. He does use it for all night more than 4 hours a night and he does get supplies from the [employer]. The patient has not required any respiratory assistance during the daytime so we can hold off on the sip and puff. Otherwise patient is without any other complaints will plan to follow-up in about 8 months. If the patient has any issues prior to that he is to call the office for an earlier assessment. 02/02/2023 the patient is here for a pulmonary follow-up visit. The patient overall is in good spirits. Continues use the oxygen with good effect. The patient unfortunately had his portable oxygen concentrator breakdown. He is wondering if he can get a POC from his DME company. I did call his DME company and they do not supply them. Therefore he continue to use the oxygen tanks and will have to send his POC to the maker to see if they can fix it. He continues use a noninvasive ventilator at nighttime. This has been affecting beneficial. He has not been performing any exercise activity which I am concerned about. His total lung capacities already down to 44%. We talked about the importance o f doing so. I did give him again the information about the online pulmonary rehabilitation. But, if this is effective patient should consider in-person studies. We plan to repeat his PFTs and ABG or venous gas in 6 months to assess his progress. 06/08/2023 the patient is here for a pulmonary follow-up visit. Overall he is doing well. He continues use the oxygen at 3 L. He also has been using noninvasive ventilator at nighttime with good effect. The patient is working on weight loss which is helping. We did review his recent pulmonary function studies. Appears that his FVC and FEV1 both improved suggesting that is restrictive lung disease is a little better. Although still severe. He also has a severe diffusion impairment secondary to the restriction. The patient will would benefit from pulmonary rehabilitation. He is post polio and does have his physical limitations but I do believe that building up his respiratory capacity and endurance will be very effective in further improving his lung capacity. The patient is agreeable at this time. We did look at the last blood gas. The patient does have some degree of hypercarbia. Will go ahead and repeat the blood gas later on after rehabilitation. Patient is using compression stockings which is helping his lower extremity edema. Overall he is doing well. Will follow-up in 6 months. 12/13/2023 the patient is here for a pulmonary follow-up visit. Overall he is doing well. He completed pulmonary rehabilitation. Although he needs to continue exercising on a regular basis at home. He did get some new orthotics and did have significant amount of weight loss in lower extremity edema has improved dramatically so the patient is able to do it a little better and safer. He is going to go for walks with his . I also did give her information about the online pulmonary rehab, pulmonary wellness that organ he is going to look into those programs in order to stay active with his lung. The patient also needs to continue with chest physical therapy. He does have percussion vest that he needs to use more regularly. The noninvasive ventilator at nighttime is very affecting beneficial. He uses it every night. And this will continue to use. He is going to go for blood work today and will see what his blood gas is doing to make sure that his CO2 is not any higher. The patient was seen by Cardiology. At least from a pulmonary standpoint the patient does have significant restrictive lung disease due to his neuromuscular disease although he is at a stable baseline. Will plan to follow-up in 6 months. The patient has any issues prior to that call for an earlier assessment. 06/13/2024 the patient is here for a pulmonary follow-up visit. Overall the patient actually been doing fairly good for from self. He has had some good amount of weight loss. He has also continued to exercise regularly. He already completed the pulmonary rehabilitation. He continues uses noninvasive ventilator at nighttime. His last blood gas was reassuring with CO2 still stable at 56 mmHg. His respiratory inhalers are stable. The patient has been evaluated by Cardiac surgery. He does have a aortic valve that is being monitor closely. He will probably undergo additional testing. If he were to need cardiac surgery the patient is medically optimized at this point and she will be able to tolerate anesthesia and surgery. Although, he does have increased risk with his history of hypercarbic respiratory failure in his restrictive lung disease could result in increased perioperative pulmonary complications. Therefore, if there is any alternative therapies that are nonsurgical that would be a better option for the patient. Will continue to monitor follow-up in 6-8 months. 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 Chronic respiratory failure Deviated nasal septum Post-polio syndrome Obstructive sleep apnea Obesity Supplemental oxygen dependent Sinus of Valsalva aneurysm Tricuspid regurgitation Pulmonary hypertension Surgical History (Updated 06/16/21 @ 12:32 by Keila Saenz PA-C) History of tonsillectomy History of cardiac catheterization Social History Patient Tobacco Use Status: Never used Tobacco Review of Systems Const Denies headache(s) and Reports weight loss Eyes Denies change in vision ENT Denies headache(s) Card Denies chest pain, Denies dyspnea and Reports dyspnea on exertion Resp Denies cough, Denies dyspnea, Reports dyspnea on exertion and Denies wheezing GI Reports no additional complaints Musc Reports abnormal gait and Reports deformity Skin/Breast Denies rash Neuro Reports abnormal gait and Denies headache(s) Aller/Immun Denies wheezing Physical Exam Vital Signs: Last Vital Signs Pulse 108 H 06/13/24 10:53 BP 148/76 H 06/13/24 10:53 Pulse Ox 98 06/13/24 10:53 Oxygen Delivery Method Nasal Cannula 06/13/24 10:53 Oxygen Flow Rate 2 06/13/24 10:53 BMI result Body Mass Index 31.2 Const General: alert Neck Neck: Yes normal visual inspection, Yes full ROM and Yes no lymphadenopathy Chest Chest palpation & inspection: normal inspection of the chest Resp Effort & Inspection: normal respiratory effort Auscultation: diminished lung sounds Cardio Rate: tachycardic Rhythm: regular rhythm Heart sounds: S1 normal heart sound present and S2 normal heart sound present GI Palpation (GI): Soft to palpation and nontender Auscultation: normal bowel sounds Skin General skin exam: rashes and/or lesions noted Assessment & Plan Assessment & Plan (1) Post-polio syndrome: Code(s): G14 - Postpolio syndrome Category: Medical (2) Obstructive sleep apnea: Comment: ([facility] Sleep Test 08/16/18 - AHI 23.9) Code(s): G47.33 - Obstructive sleep apnea (adult) (pediatric) Category: Medical (3) Supplemental oxygen dependent: Code(s): Z99.81 - Dependence on supplemental oxygen Category: Medical (4) Pulmonary hypertension: Comment: WHO group 3 Code(s): I27.20 - Pulmonary hypertension, unspecified Category: Medical (5) Chronic respiratory failure: Code(s): J96.10 - Chronic respiratory failure, unspecified whether with hypoxia or hypercapnia Category: Medical Qualifiers: Respiratory failure complication: hypoxia Qualified Code(s): J96.11 - Chronic respiratory failure with hypoxia (6) Restrictive lung mechanics due to neuromuscular disease: Code(s): J98.4 - Other disorders of lung; G70.9 - Myoneural disorder, unspecified Category: Medical (7) Vasomotor rhinitis: Code(s): J30.0 - Vasomotor rhinitis Category: Medical Plan continue oxygen supplementation continue sleep, conserving device, Needs to have his POC serviced. noninvasive ventilator at nighttime repeat blood gas was ok PCO2 56mmHg continue percussion vest to provide better bronchopulmonary hygiene and improvement in his lung capacity continue ipratropium nasal spray for vasomotor rhinitis completed pulmonary rehabilitation in person, needs to continue exercise regimen follow-up in 6 months Coding Level of Care Code Est Pt Level 4 (73643) Complex EM visit Add On G2211 Diagnoses Post-polio syndrome G14 Obstructive sleep apnea G47.33 Supplemental oxygen dependent Z99.81 Pulmonary hypertension I27.20 Chronic respiratory failure with hypoxia J96.11 Respiratory failure complication: hypoxia Restrictive lung mechanics due to neuromuscular disease J98.4; G70.9 Vasomotor rhinitis J30.0 Time Spent (min) 17
--- OUTSIDE RECORDS SUMMARY | 2024-06-13 12:21 | XMS_ITS | Encounter Summary ---
Author Organization [employer] Address [address] [place] [address] Care Team Providers Care Human Resources Recruiter Name Role Phone Remy Medina MD Primary Care Provider [phone] Reason for Visit * Reason Comments Follow-up Encounter Details Date Type Department Care Team (Late st Contact Info) Description 05/18/2024 8:50 AM EST Office Visit [facility] [address] [facility] [address] [place] [address] Enoch Luu MD [address] [facility] [address] [place] [address] Pulmonary hypertension (CMS/HCC) (Primary Dx); Chronic right-sided heart failure (CMS/HCC) Social History Tobacco Use Types Packs/Day Years Used Date Smoking Tobacco: Never Smokeless Tobacco: Never Alcohol Use Standard Drinks/Week Comments Not Currently 0 (1 standard drink = 0.6 oz pur e alcohol) Sex and Gender Information Value Date Recorded Sex Assigned at Not on file Legal Sex Male 4:11 PM EST Gender Identity Not on file Sexual Orientation Not on file documented as of this encounter Last Filed Vital Signs Vital Sign Reading Time Taken Comments Blood Pressure 110/80 05/18/2024 9:11 AM EST Pulse 96 05/18/2024 9:11 AM EST Temperature - - Respiratory Rate - - Oxygen Saturation 96% 05/18/2024 9:11 AM EST Inhaled Oxygen Concentration - - Weight 92.5 kg (204 lb) 05/18/2024 8:52 AM EST Height 170.2 cm (5' 7 ) 05/18/2024 8:52 AM EST Body Mass Index 31.95 05/18/2024 8:52 AM EST documented in this encounter Progress Notes * Enoch Luu MD - 05/18/2024 8:50 AM EST Images from the original note were not included. [facility] Cardiology Follow-up Note PCP: Remy Medina MD HPI: Chris Stafford III is a 74 y.o. old male with Chris Stafford III is a 73 yr. old Male with past medical history of polio and pulmonary hypertension. He was seen in consultation by Dr. Ndiaye in July2018 secondary to an abnormal echocardiogram. He underwent a right heart catheterization by Dr. Sawyer in November 2018. Hemodynamics revealed a wedge pressure of 22 mmHg, PA pressure of 101/42, andRV pressure 114/13. His findings were consistent for severe pulmonary hypertension predominantly precapillary with a small postcapillary component and moderate diastolic dysfunction. He is on oxygen 24 hours a day. An echocardiogram was repeated in February 2021 revealing a normal left ventricular ejection fraction of 55 to 60%, mild diastolic dysfunction, normal RV size and function, upper limits of normal sinus of Valsalva 3.9 cm, and pulmonary pressures could not be obtained due to lack of TR jet. Most recently he has been following with Dr. Sanders of pulmonary. Repeat echo in 2023 showing stable RV function. PA pressure unable to be obtained due to minimal TR jet. Right atrial pressure was ~8mmHg based on IVC. Remains stable. Leg swelling stable and controlled with compression stockings. ACTIVE MEDICATIONS: Outpatient Medications Marked as Taking for the 05/18/24 encounter (Office Visit) with Enoch Salgado MD Medication Sig Dispense Refill atorvastatin (LIPITOR) 20 mg tablet Take 1 tablet (20 mg total) by mouth 1 (one) time each day. furosemide (LASIX) 20 mg tablet Take 3 Tablets by mouth 2 times daily. PARoxetine (PAXIL) 10 mg tablet Take 1 tablet (10 mg total) by mouth 1 (one) time each day. semaglutide (Ozempic) 1 mg/dose (2 mg/1.5 mL) injection pen Inject into the skin once a week. PAST MEDICAL HISTORY: Patient Active Problem List Diagnosis Pulmonary hypertension (CMS/HCC) Right heart failure (CMS/HCC) Sinus of Valsalva aneurysm Tricuspid valve regurgitation ALLERGIES: No Known Allergies FAMILY HISTORY: Family History Problem Relation Name Age of Onset Other (Other: Other) Father unknown heart problems SOCIAL HISTORY: Social History Tobacco Use Smoking status: Never Smokeless tobacco: Never Substance Use Topics Alcohol use: Not Currently PHYSICAL EXAM: Vitals: 05/18/24 0852 05/18/24 0911 BP: (!) 152/64 110/80 Pulse: (!) 112 96 SpO2: 95% 96% Weight: 92.5 kg (204 lb) Height: 1.702 m (67 ) Repeat BP 110/60 HR 96 Gen: Stated age, well nourished, sitting up NAD HEENT: MMM no LAD, JVP ~8 cm H20 Pulm: non-labored, CTAB, no wheezing Heart: RRR, no m/g/r Abd: Soft NT/ND, +BS, no tenderness Extrem: no c/c/Mild LE edemae, no ulcers on LE Skin: no rashes Vasc: 2+ RP no carotid bruit Neuro: Alert oriented x 3, UE strength symmetric intact Psych: Mood good, Affect congruent EKG: No results found for this or any previous visit (from the past 4464 hours). TESTING: No results found for: CHOL , TRIG , LDL , HDL , LDLCALC ASSESSMENT/PLAN: Assessment & Plan 1. Pulmonary HTN Sx stable, doing well with lasix. Following with pulmonary as well. Updated echo showing normal RV function. PA pressures could not be obtained. Have held off on RHC given been pretty stable without overt RV failure. Can follow-up with pulmonary team if further investigation needed. 2. Dilated aortic root Minimal growth continue occasional monitoring The [facility] team will continue to co-manage this patient following the plan of care as established by my initial visit and as per AHA guidelines for ongoing management and surveillance of above listed conditions. This will include medication titration, initiation of appropriate medications and further t itration, and diagnostic studies to manage this disease process. documented in this encounter Plan of Treatment Upcoming Encounters Date Type Department Care Team (Late st Contact Info) Description 11/27/2024 2:30 PM EDT Office Visit [facility] [address] [facility] [address] [place] [address] Enoch Luu MD [address] [place] [address] documented as of this encounter Visit Diagnoses Diagnosis Pulmonary hypertension (CMS/HCC)- Primary Other chronic pulmonary heart diseases Chronic right-sided heart failure (CMS/HCC) Congestive heart failure, unspecified documented in this encounter Care Teams Human Resources Recruiter Relationship Specialty Start Date End Date Remy Medina MD [address] [facility] [address] [place] [address] PCP - General Internal Medicine 07/08/20 documented as of this encounter
--- OUTSIDE RECORDS SUMMARY | 2024-06-13 12:21 | XMS_ITS | Patient Health Record ---
Author Organization [facility] Address [address] [place] [address] Care Team Providers Care Middleware Developer Name Role Phone Remy Medina Primary Care Provider Erasto Arora Unavailable [phone] Allergies No Known Allergies Results Component Value Reference Range Notes HEMOGLOBIN A1C (GLYCOHEMOGLO BIN) Reviewed date:04/04/2024 02:23:24 PM Interpretation: Performing Lab: Notes/Report: HEMOGLOBIN A1C % (HH) 7.4 Reason For Referral No Information Medications Medication SIG (Take, Route, Frequency, Duration) Notes Start Date End Date Status Furosemide 20 MG TAKE 1 TABLET BY GERALD TH THREE TIMES A DAY Oral for 30 Active oxygen Active PARoxetine HCl 20 MG TAKE 1 TABLET DAILY Oral for 30 Active Paxil Active metFORMIN HCl Not-Ta [facility] Active Immunizations Vaccine Route Administration Date Status Comme nts COVID-19 Pfizer BioNTech Vaccine Unknown 01/28/2021 Administered 1st: 06/07/2020 2nd: 07/02/2020 Social History Tobacco Use: Social History Observation Description Date Details (start date - stop date) Never Smoker NA - NA Alcohol Screen Question Answer Notes Did you have a drink containing alcohol in the p ast year? No Points 0 Interpretation Negative Tobacco use other than smoking: Question Answer Notes Are you an other tobacco user? No Tobacco Control (Standard) Question Answer Notes Tobacco use: Nonsmoker Additional Findings: Tobacco non-user Current no nsmoker Problems Problem Type SNOMED Code ICD Code Onset Dates Problem Status W/U Status Risk Notes Problem Acquired hammer toe of right foot (1386346280265 105) Other hammer toe(s) (acquired), right foot (M20.41) Active confirmed Response to treatment,I mprovement Problem Type 2 diabetes mellitus with peripheral angiopathy (180273281) Type 2 diabetes mellitus with diabetic peripheral angiopathy without gangrene (E11.51) Active confirmed Q7(A), Q8(2B), Q9(1B,2C) Problem Acquired hammer toe of left foot (9215610537288 103) Other hammer toe(s) (acquired), left foot (M20.42) Active confirmed Response to treatment,I mprovement Vital Signs Blood pressure diastolic 67 mm Hg 04/04/2024 Height 5ft 7in in 04/04/2024 Blood pressure systolic 130 mm Hg 04/04/2024 Weight 190 lbs 04/04/2024 BMI 29.75 kg/m2 04/04/2024 Procedures Procedure Date Ordered Date Performed Result Body Sit e 22353-FIUVDIF NAIL, 6 OR MORE 07/06/2023 N/A 81363-DPRY SKIN LESIONS, OVER 4 07/06/2023 N/A 78102-SYILXTO NAIL, 6 OR MORE 10/05/2023 N/A 85932-FAFI SKIN LESIONS, OVER 4 10/05/2023 N/A 80386-RSRUQPC NAIL, 6 OR MORE 01/04/2024 N/A 42221-UANK SKIN LESIONS, OVER 4 01/04/2024 N/A 01096-EYQVMTU NAIL, 6 OR MORE 04/04/2024 N/A 88588-OBOD SKIN LESIONS, OVER 4 04/04/2024 N/A Encounters Encounter Location Date Provider Diagnosis [address] [address] 07/06/2023 Erasto Durant Type 2 diabetes mellitus with diabetic peripheral angiopathy without gangrene E11.51 ; Tinea unguium B35.1 ; Pain in right toe(s) M79.674 ; Pain in left toe(s) M79.675 and Tinea pedis of both feet B35.[address] [address] 10/05/2023 Erasto Durant Type 2 diabetes mellitus with diabetic peripheral angiopathy without gangrene E11.51 ; Tinea unguium B35.1 ; Pain in right toe(s) M79.674 and Pain in left toe(s) M79.[address] [address] 01/04/2024 Erasto Durant Type 2 diabetes mellitus with diabetic peripheral angiopathy without gangrene E11.51 ; Tinea unguium B35.1 ; Pain in right toe(s) M79.674 ; Pain in left toe(s) M79.675 ; Other hammer toe(s) (acquired), right foot M20.41 and Other hammer toe(s) (acquired), left foot M20.[address] [address] 04/04/2024 Erasto Durant Type 2 diabetes mellitus with diabetic peripheral angiopathy without gangrene E11.51 ; Tinea unguium B35.1 ; Pain in right toe(s) M79.674 and Pain in left toe(s) M79.[address] [address] 04/16/2024 Erasto Durant Assessments Encounter Date Diagnosis (ICD Code) Assessment Notes Treatment Notes Treatment Clinical Notes Section Notes 07/06/2023 Type 2 diabetes mellitus with diabetic peripheral angiopathy without gangrene (ICD-10 - E11.51) 07/06/2023 Tinea unguium (ICD-10 - B35.1) 10/05/2023 Type 2 diabetes mellitus with diabetic peripheral angiopathy without gangrene (ICD-10 - E11.51) 10/05/2023 Tinea unguium (ICD-10 - B35.1) 01/04/2024 Type 2 diabetes mellitus with diabetic peripheral angiopathy without gangrene (ICD-10 - E11.51) 01/04/2024 Tinea unguium (ICD-10 - B35.1) 04/04/2024 Type 2 diabetes mellitus with diabetic peripheral angiopathy without gangrene (ICD-10 - E11.51) Q7(A), Q8(2B), Q9(1B,2C) 04/04/2024 Tinea unguium (ICD-10 - B35.1) 04/04/2024 Pain in right toe(s) (ICD-10 - M79.674) 01/04/2024 Pain in right toe(s) (ICD-10 - M79.674) 10/05/2023 Pain in right toe(s) (ICD-10 - M79.674) 07/06/2023 Pain in right toe(s) (ICD-10 - M79.674) 07/06/2023 Pain in left toe(s) (ICD-10 - M79.675) 10/05/2023 Pain in left toe(s) (ICD-10 - M79.675) 01/04/2024 Pain in left toe(s) (ICD-10 - M79.675) 04/04/2024 Pain in left toe(s) (ICD-10 - M79.675) 01/04/2024 Other hammer toe(s) (acquired), right foot (ICD-10 - M20.41) Response to treatment,Impro vement 07/06/2023 Tinea pedis of both feet (ICD-10 - B35.3) 01/04/2024 Other hammer toe(s) (acquired), left foot (ICD-10 - M20.42) Response to treatment,Impro vement 07/06/2023 Other Plan Of Treatment Pending Test Test Name Order Date 16212-LBCNCHI NAIL, 6 OR MORE 04/26/2018 30637-TKNQINH NAIL, 6 OR MORE 07/24/2018 13361-VQVSWYB NAIL, 6 OR MORE 06/08/2017 57610-DBHAZKH NAIL, 6 OR MORE 10/23/2018 24489-KTPNIEK NAIL, 6 OR MORE 01/15/2019 01474-CGNBLFY NAIL, 6 OR MORE 04/18/2019 66087-NQDWBVC NAIL, 6 OR MORE 09/13/2019 03519-APTKJBP NAIL, 6 OR MORE 12/13/2019 65261-EAXCRMA NAIL, 6 OR MORE 03/24/2020 06484-SIZBMFY NAIL, 6 OR MORE 06/23/2020 78268-UOGVXDG NAIL, 6 OR MORE 09/24/2020 48180-QXJKIBL NAIL, 6 OR MORE 03/26/2021 42352-ZLTBGIT NAIL, 6 OR MORE 06/25/2021 53842-RWNDWDS NAIL, 6 OR MORE 09/24/2021 89667-GUOJEPE NAIL, 6 OR MORE 12/24/2021 98631-DMJBWDI NAIL, 6 OR MORE 03/25/2022 06520-UQTBATH NAIL, 6 OR MORE 07/01/2022 07752-UZMHNRJ NAIL, 6 OR MORE 09/23/2022 93128-TGSSCBU NAIL, 6 OR MORE 12/23/2022 20742-CUMVOZJ NAIL, 6 OR MORE 04/06/2023 42440-XEOGERN NAIL, 6 OR MORE 07/06/2023 28582-IJUWEYQ NAIL, 6 OR MORE 10/05/2023 60575-RKKAZDS NAIL, 6 OR MORE 01/04/2024 98826-APUWFGS NAIL, 6 OR MORE 04/04/2024 49661-XOEU SKIN LESIONS, OVER 4 04/04/19 25 35926-IJXZ SKIN LESIONS, OVER 4 01/04/20 72527-LTNJ SKIN LESIONS, OVER 4 10/05/19 67232-AQYP SKIN LESIONS, OVER 4 07/06/19 44854-MGMO SKIN LESIONS, OVER 4 04/06/19 24 90788-PBGR SKIN LESIONS, OVER 4 12/24/19 28271-OAMH SKIN LESIONS, OVER 4 09/24/19 53691-TEKZ SKIN LESIONS, OVER 4 07/02/19 40934-IYVL SKIN LESIONS, OVER 4 03/25/19 48828-RIEI SKIN LESIONS, OVER 4 12/25/19 61921-JJZF SKIN LESIONS, OVER 4 09/25/19 16477-TWGU SKIN LESIONS, OVER 4 06/26/19 22 93975-HRHQ SKIN LESIONS, OVER 4 03/26/19 46788-CUXW SKIN LESIONS, OVER 4 09/25/19 51286-ZTOU SKIN LESIONS, OVER 4 06/24/19 48601-EGYD SKIN LESIONS, OVER 4 03/24/19 10635-FLRR SKIN LESIONS, OVER 4 12/13/19 20 66519-BLAT SKIN LESIONS, OVER 4 09/13/19 20 14349-GUYW SKIN LESIONS, OVER 4 04/18/19 20 44931-KLMI SKIN LESIONS, OVER 4 01/16/20 19 37019-CMAK SKIN LESIONS, OVER 4 08/05/20 19 18367-LONA SKIN LESIONS, OVER 4 04/26/19 19 97273-OUSS SKIN LESIONS, OVER 4 07/25/19 19 84309-TKGE SKIN LESIONS, 2 TO 4 06/09/19 18 33268 - Tenotomy, open flexor 10/02/2018 Next Appt Details Provider Name:Erasto Durant , 07/04/2024 01:00:00 PM, [address] [facility], [address], [place], [address], Insurance Providers Payer Name Payer Address Payer Phone Subscriber Number Group Number Insured Name Patient Relationship to Insured Coverage Start Date Coverage End Date Medicare National Govt Sv[employer] [address] [place] [address] [id number] Chris Stafford III Self - patient is the insured 5 [employer] [address] [place] [address] [id number] Chris Stafford III Self - patient is the insured Medical (General) History Medical History History ICD Code Anxiety disorder Chicken pox Joint implants/screws Lung disease Measles Post Polio Scoliosis Diabetes Surgical History Surgery Date(Month/Year) Polio 1960, 1968 pulmonary surgery 11/2018 Hospitalization History Reason Date(Month/Year) Echocardiogram 04/25/18
--- OUTSIDE RECORDS SUMMARY | 2024-06-13 12:21 | XMS_ITS | Encounter Summary ---
Author Organization [facility] Address [address] [place] [address] Care Team Providers Care Gaming Cage Cashier Name Role Phone Remy Medina MD Primary Care Provider [phone] Encounter Details Date Type Department Care Team (Latest Contact Info) Description 02/20/2024 Lab Requisition [facility] - Main Lab [address] [facility] [place] [phone] Remy Medina MD 299 [facility] [address] [place] [phone] Type 2 diabetes mellitus without complications (CMS/HCC) Social History Tobacco Use Types Packs/Day [...] on file documented as of this encounter Plan of Treatment Upcoming Encounters Date Type Department Care Team (Late st Contact Info) Description 11/27/2024 2:30 PM EDT Office Visit [facility] [address] [facility] [address] [place] [address] Enoch Luu MD [address] [facility] [address] [place], [place] [id number] documented as of this encounter Procedures Procedure Name Priority Date/Time Associated Diagnosis Comments HEMOGLOBIN A1C Routine 02/20/2024 12:00 AM EST Type 2 diabetes mellitus without complications ([facility]) documented in this encounter Results * (ABNORMAL) Hemoglobin A1c (02/20/2024 12:00 AM EST) Hemoglobin A1C 7.0(H) <6.5 % LAB CHEMISTRY METHOD 02/20/2024 8:52 PM EST [facility] Mean Bld Glu Estim. 154 mg/dL LAB CHEMISTRY METHOD 02/20/2024 8:52 PM EST [facility] Blood Venous blood specimen / Unknown 02/20/2024 02/20/2024 5:49 PM EST us Remy Medina MD LAB BLOOD ORDERABLES Final Res ult [facility] [address] [place] [address], documented in this encounter Visit Diagnoses Diagnosis Type 2 diabetes mellitus without complications documented in this encounter Care Teams Gaming Cage Cashier Relationship Specialty Start Date End Date Remy Medina MD [address] [address] PCP - General Internal Medicine 07/08/20 documented as of this encounter
--- OUTSIDE RECORDS SUMMARY | 2024-06-13 12:21 | XMS_ITS ---
Author Organization [facility] Address [address] [place] [address] Care Team Providers Care Retail Assistant Name Role Phone Remy Medina Primary Care Provider Erasto Arora Unavailable [phone] Allergies No Known Allergies REASON FOR VISIT At Risk Footcare, Painful Nail(s) aggravated by shoes and causing difficulty standing/walking Medications Medication SIG (Take, Route, Frequency, Duration) Notes Start Date End Date Status oxygen Active PARoxetine HCl 20 MG TAKE 1 TABLET DAILY Oral for 30 Active Paxil Active metFORMIN HCl Not-Ta estrella Ozemp Active Furosemide 20 MG TAKE 1 TABLET BY GERALD THREE TIMES A DAY Oral for 30 Active Social History Tobacco Use: Social History Observation [...] Additional Findings: Tobacco non-user Current no nsmoker Vital Signs Height 5ft 7in in 04/04/2024 Weight 190 lbs 04/04/2024 BMI 29.75 kg/m2 04/04/2024 Blood pressure systolic 130 mm Hg 04/04/19 25 Blood pressure diastolic 67 mm Hg 025 Procedures Procedure Date Ordered Date Performed Result Body Sit e 76201-INLRHCY NAIL, 6 OR MORE 04/04/2024 N/A 35023-BMRQ SKIN LESIONS, OVER 4 04/04/2024 N/A Encounters Encounter Location Date Provider Diagnosis [facility] [address] [address] 04/04/2024 Erasto Durant Type 2 diabetes mellitus with diabetic peripheral angiopathy without gangrene E11.51 ; Tinea unguium B35.1 ; Pain in right toe(s) M79.674 and Pain in left toe(s) M79.675 Assessments Encounter Date Diagnosis (ICD Code) Assessment Notes Treatment Notes Treatment Clinical Notes Section Notes 04/04/2024 Type 2 diabetes mellitus with diabetic peripheral angiopathy without gangrene (ICD-10 - E11.51) Q7(A), Q8(2B), Q9(1B,2C) 04/04/2024 Tinea unguium (ICD-10 - B35.1) 04/04/2024 Pain in right toe(s) (ICD-10 - M79.674) 04/04/2024 Pain in left toe(s) (ICD-10 - M79.675) Plan Of Treatment Pending Test Test Name Order Date 95811-TEUIBNI NAIL, 6 OR MORE 04/04/2024 04148-DWSP SKIN LESIONS, OVER 4 04/04/19 25 Next Appt Details Follow Up: prn, Reason: Provider Name:Erasto Durant , 07/04/2024 01:00:00 PM, [address] [facility] [place] [address], [place], [address], Procedure Notes * Category Sub-Category Detail Notes Debride Nail 6-10 Nail debridement Due to the cl inical pathology outlined in the exam findings, performance of this nail treatment is medically necessary as its management by an unskilled/untrained nonprofessional would put this patients foot and overall health at risk. Therefore, debridement to affected nail(s), as described in exam ( TA, T1, T2, T3, T4, T5, T6, T7, T8, T9), was performed exclusively by the physician of record to reduce/remove overall nail length, girth, thickness, subungual debris, and necrotic tissue, by manual and/or electrical means through the use of a nail nipper and/or dremel-type pigment grinder, to a more viable healthy nail plate or bed tissue 6-10 nails in total. Silver nitrate was used for any petechial bleeding as necessary. Definitive antifungal treatment options, both pharmaceutical and surgical, have been reviewed and discussed with the patient. The patient solely prefers the use of intermittent/as needed professional debridement services for their nail condition and understands the need for additional periodic treatments to maintain effectiveness in symptomatic relief - 10342 Keratoma Treatment Parring or Cutting o f Benign Hyperkeratotic Lesion(s) (-57) More than 4 Lesions - Due to the at risk nature of the patients medical condition as documented in the exam findings, performance of this keratoderma treatment is medically necessary as its management by an unskilled/untrained nonprofessional would put this patients foot and overall health at risk. Therefore, the benign hyperkeratotic lesions, ( 6) in total, locations as stated and described in the exam ( Dorsal, PIPJ,T9,SUB MTH (s),1,B/L,SUB MTH (s),5,Right,Plantar, Heel(s),B/L), were pared, and/or cut utilizing a sterile 15 blade, tissue nippers, and/or power dremel instrumentation by the physician of record - 96334, Q8 Progress Notes * Chris STAFFORD III HDOB:[birth year] (74 yo M)Acc No.[id number]:04/04/2024 Progress Note Patient:?Chris STAFFORD III H Provider:?Erasto Durant DPM :1950???Age:74 Y???Sex:Male Viraj e:04/04/2024 Address:[address] [place], [place] [phone] Pcp:Remy Medina Subjective: * Chief Complaints: * ???At Risk FootcarePainful N ail(s) aggravated by shoes and causing difficulty standing/walking * HPI: ???At Risk footcare:?Pt States Last PCP Visit:?Date?03/08/2024 * ROS:?General/Constitutional:?Nausea?denies.?Vomiting?denies.?Hunger Thirst?denies.?Loss appetite?denies.?Chills?denies.?Fatigue?denies.?Fever?denies.?Night Sweats?denies.?Unexplained weight loss?denies.?Unexplained weight gain?denies.?HEENTM:?Dentures?denies.?Dizziness?denies.?Glasses/contacts?denies.?Retinopathy?den ies.?Blurred/double vision?denies.?TMJ?denies.?Discharge/drainage?denies.?Implants?denies.?Sore throat?denies.?Dental implants?denies.?Hard of hearing ?denies.?Difficulty chewing/swallowing/speaking?admits.?Nose bleeds?denies.?Sore mouth?denies.?Respiratory:?On O xygen?admits.?Pneumonia/pleurisy?denies.?Bronchitis?denies.?Emphysema?denies.?Co ughing?denies.?Cough blood?denies.?Shortness of breath?admits.?Wheezing?denies.?Cardiovascular:?Pacemaker?denies.?MVP?denies.?WPW?denies.?CHF?denies.?Heart attack?denies.?Septal defect?denies.?Rapid beat?denies.?Chest pain ?denies.?Atrial Fib.?denies.?Murmur/Palpitations?denies.?Gastrointestinal:?Hemorrhoids?denies.?Stomach/Abdominal pain?admits.?Dark blood stool?denies.?Irritable bowel ?denies.?Constipation?denies.?Diarrhea?denies.?Hematology:?Swelling?admits.?Clots?denies.?Varicose Veins?denies.?Bruising?denies.?Bleeding problem?denies.?Genitourinary:?Blood urine?denies.?Frequent/Painfu/urination/bladder control?denies.?Kidney stones?denies.?Infection (UTI)?denies.?Nephropathy?denies.?sex trans dis (STD)?denies.?Prostate?denies.?Musculoskeletal:?Hammertoes?admits.?Bunions?denies.?Back Pain?denies.?Muscle Cramps/ Resting?denies.?Muscle cramps / walking?denies.?Generalized aches and pains?denies.?Weakness?denies.?Integ.:?Arzate?denies.?Scars?denies.?Corns/calluses?admits.?Ingrown nails?admits.?Painful nails?admits.?Open Sores?denies.?Rashes?denies.?Neurologic:?Difficulty sleeping?admits.?Brain disorder?denies.?Numbness?denies.?Balance t rouble?admits.?Confusion?denies.?Fainting/blackouts?denies.?Tingling?denies.?Joe mors?denies.? * Medical History:? * Surgical History:?Polio 1961 , 1968pulmonary surgery 11/2018 * Hospitalization/Major Diagno stic Procedure:?Echocardiogram 04/25/18 * Family History:?Mother: dece ased.?Father: alive.?Spouse: alive.? * Social History:?Tobacco Use:?Tobacco use other than smoking?Are you an other tobacco user??No ?Tobacco Control (Standard)?Tobacco use:?Nonsmoker ?Additional Findings: Tobacco non-user?Current nonsmoker ???Drugs/Alcohol:?Drugs?Have you used drugs other than those for medical reasons in the past 12 months??No ?Alcohol Screen?Did you have a drink containing alcohol in the past year??No ?Points?0 ?Interpretation?Negative ???Miscellaneous:?Caffeine: yes, frequency:, 2-3 cups per day. ?Children: yes, 3. ?Exercise: yes, walking,cooking shopping. ?Marital status: . ?Occupation: Retired Shelf Filler. * Medications:?TakingOzempic F urosemide 20 MG Tablet TAKE 1 TABLET BY MOUTH THREE TIMES A DAY Oral oxygen PARoxetine HCl 20 MG Tablet TAKE 1 TABLET DAILY Oral Paxil Taking Ozempic Taking Furosemide 20 MG Tablet TAKE 1 TABLET BY MOUTH THREE TIMES A DAY Oral Taking oxygen Taking PARoxetine HCl 20 MG Tablet TAKE 1 TABLET DAILY Oral Taking Paxil Not-Taking/PRNmetFORMIN HCl Medication List reviewed and reconciled with the patientNot-Taking/PRN metFORMIN HCl Medication List reviewed and reconciled with the patient * Allergies:?N.K.D.A.yes[Aller gies Verified] Objective: * Vitals:?Ht: 5ft 7in, Wt:190, BMI:29.75, Shoe size: 9-9.5, BP:130/67mm Hg, Ht-cm: 170.18 cm, Wt-k.18 kg. * ???Past Orders: ???Lab:HEMOGLOBIN A1C (GLYCO HEMOGLOBIN) (Order Date - 04/04/2024) (Collection Date & Time - 04/04/2024 02:23 PM) ? Value Reference Range ?HEMOGLOBIN A1C % (HH) 7.4 * Examination: ???Ophthalmology Referral: ?DIABETES EYE EXAM?Procedure Performed:?Yes ?Date of Exam Performed?12/08/2023 ?Findings of Diabetic Eye Exam:?no retinopathy?Vascular: ?DP PULSES (B):? 0/4, B/L.?PT PULSES (B):? 0/4, B/L.?CAPILLARY FILL TIME:? delayed, all digits, B/L.?TROPHIC CONDITION-TEXTURE/ELASTICITY/TURGOR/HAIR GROWTH (B):? decreased, fragile, thin, shiny skin, with sparse to absent hair growth, B/L.?TEMPERTURE GRADIENT (C):? decreased, cool to cool, proximal to distal, B/L.?PIGMENTATION:? rubrous, B/L.?EDEMA (C):?STILL, 4/4, non-pitting, without aching pain, B/L, Leg(s), Ankle(s), Feet - Both legs are STILL, erythematous.?CLAUDICATION (C):?denies, B/L.?REST PAIN:?denies, B/L.?Nails: ?NAILS are:?Elongated, overgrown, dystrophic, lytic, greater than 3mm thick, discolored and friable with crumbly malodorous subungual debris, with pain on palpation , TA, T1, T2, T3, T4, T5, T6, T7, T8, T9.?Dermatologic: ?SKIN FINDINGS:?Skin exam reveals Keratotic lesion(s) located at ,Dorsal, PIPJ,T9,SUB MTH (s),1,B/L,SUB MTH (s),5,Right,Plantar, Heel(s),B/L.? Assessment: * Assessment: 1.?Type 2 diabetes mellitus with diabetic peripheral angiopathy without gangrene - E11.51 (Primary)???Notes :Q7(A), Q8(2B), Q9(1B,2C)???2.?Tinea unguium - B35.1???3.?Pain in right toe(s) - M79.674???4.?Pain in left toe(s) - M79.675??? Plan: * Treatment: 2.?Tinea unguium?Procedure: 89624-RJTHOPE NAIL, 6 OR MORE * Procedures:?Debride Nail 6-10:?Nail debridement?Due to the clinical pathology outlined in the exam findings, performance of this nail treatment is medically necessary as its management by an unskilled/untrained nonprofessional would put this patients foot and overall health at risk. Therefore, debridement to affected nail(s), as described in exam (??TA, T1, T2, T3, T4, T5, T6, T7, T8, T9), was performed exclusively by the physician of record to reduce/remove overall nail length, girth, thickness, subungual debris, and necrotic tissue, by manual and/or electrical means through the use of a nail nipper and/or dremel-type pigment grinder, to a more viable healthy nail plate or bed tissue 6- 10 nails in total. Silver nitrate was used for any petechial bleeding as necessary. Definitive antifungal treatment options, both pharmaceutical and surgical, have been reviewed and discussed with the patient. The patient solely prefers the use of intermittent/as needed professional debridement services for their nail condition and understands the need for additional periodic treatments to maintain effectiveness in symptomatic relief - 70999.?Keratoma Treatment:?Parring or Cutting of Benign Hyperkeratotic Lesion(s)?(-57) More than 4 Lesions - Due to the at risk nature of the patients medical condition as documented in the exam findings, performance of this keratoderma treatment is medically necessary as its management by an unskilled/untrained nonprofessional would put this patients foot and overall health at risk. Therefore, the benign hyperkeratotic lesions, ( 6) in total, locations as stated and described in the exam (?Dorsal, PIPJ,T9,SUB MTH (s),1,B/L,SUB MTH (s),5,Right,Plantar,?Heel(s),B/L), were pared, and/or cut utilizing a sterile 15 blade, tissue nippers, and/or power dremel instrumentation by the physician of record - 47642, Q8.? * Procedure Codes:?53844 DEBRI DE NAIL, 6 OR MORE, Modifiers: XS 74338 TRIM SKIN LESIONS, OVER 4, Modifiers: XS , Q8 * Follow Up:?prn * Images: * Sign off status: Completed true * Provider:?JUSTUS PeterM Date:?2024 Generated for Gloria figueroa/Yossi/Jaquiitting on:?06/13/2024 12:21 PM EDT History and Physical Notes * HPI (History of Present Illness) Category Sub-Category Detail Notes Category Not es At Risk footcare Pt States Last PCP Visit: Date: 4 Examination Category Sub-Category Detail Notes Category Not es Dermatologic SKIN FINDINGS: Skin exam reveal s Keratotic lesion(s) located at ,Dorsal, PIPJ,T9,SUB MTH (s),1,B/L,SUB MTH (s),5,Right,Plantar, Heel(s),B/L Ophthalmology Referral DIABETES EYE EXAM Procedu re Performed:: Yes ?Date of Exam Performed: 12/08/2023 Findings of Diabetic Eye Exam:: no retin opathy Vascular DP PULSES (B): 0/4, B/L PT PULSES (B): 0/4, B/L CAPILLARY FILL TIME: delayed, all digits , B/L TEMPERTURE GRADIENT (C): decreased, cool to cool, proximal to distal, B/L TROPHIC CONDITION-TEXTURE/ELASTICITY/TURGOR/HAIR GROWTH (B): decreased, fragile, thin, shiny skin, wi th sparse to absent hair growth, B/L EDEMA (C): STILL, 4/4, non-satnam ing, without aching pain, B/L, Leg(s), Ankle(s), Feet - Both legs are STILL, erythematous CLAUDICATION (C): denies, B/L REST PAIN: denies, B/L PIGMENTATION: rubrous, B/L Nails NAILS are: Elongated, overg rown, dystrophic, lytic, greater than 3mm thick, discolored and friable with crumbly malodorous subungual debris, with pain on palpation , TA, T1, T2, T3, T4, T5, T6, T7, T8, T9
--- OUTSIDE RECORDS SUMMARY | 2024-06-13 12:21 | XMS_ITS ---
Author Organization [facility] Address [address] [place] [address] Care Team Providers Care Tutorial Laboratory Supervisor Name Role Phone Remy Medina Primary Care Provider Erasto Arora Unavailable [phone] Allergies No Known Allergies REASON FOR VISIT At Risk Footcare, Painful Nail(s) aggrevated by shoes and causing difficulty standing/walking, Toe Irritation Medications Medication SIG (Take, Route, Frequency, Duration) Notes Start Date End Date Status Paxil Active metFORMIN HCl Not-Ta estrella Furosemide 20 MG TAKE 1 TABLET BY THREE TIMES A DAY Oral for 30 Active oxygen Active Ozempic Active PARoxetine HCl 20 MG TAKE 1 TABLET DAILY Oral for 30 Active Social History Tobacco Use: Social History Observation Description Date Details (start date - stop date) Never Smoker NA - NA Tobacco Use/Smoking Question Answer Notes Are you a: nonsmoker Additional Findings: Tobacco Non-User Current no n-smoker Alcohol Screen Question Answer Notes Did you have a drink containing alcohol in the p ast year? No Points 0 Interpretation Negative Tobacco use other than smoking: Question Answer Notes Are you an other tobacco user? No Vital Signs Height 5ft 7in in 01/04/2024 Weight 200 lbs 01/04/2024 BMI 31.32 kg/m2 01/04/2024 Procedures Procedure Date Ordered Date Performed Result Body Sit e 71035-CBZNCSK NAIL, 6 OR MORE 01/04/2024 N/A 53986-QESQ SKIN LESIONS, OVER 4 01/04/2024 N/A Encounters Encounter Location Date Provider [facility] [address] [place] [id number] 01/04/2024 Erasto Durant Type 2 diabetes mellitus with diabetic peripheral angiopathy without gangrene E11.51 ; Tinea unguium B35.1 ; Pain in right toe(s) M79.674 ; Pain in left toe(s) M79.675 ; Other hammer toe(s) (acquired), right foot M20.41 and Other hammer toe(s) (acquired), left foot M20.42 Assessments Encounter Date Diagnosis (ICD Code) Assessment Notes Treatment Notes Treatment Clinical Notes Section Notes 01/04/2024 Type 2 diabetes mellitus with diabetic peripheral angiopathy without gangrene (ICD-10 - E11.51) 01/04/2024 Tinea unguium (ICD-10 - B35.1) 01/04/2024 Pain in right toe(s) (ICD-10 - M79.674) 01/04/2024 Pain in left toe(s) (ICD-10 - M79.675) 01/04/2024 Other hammer toe(s) (acquired), right foot (ICD-10 - M20.41) Response to treatment,Impro vement 01/04/2024 Other hammer toe(s) (acquired), left foot (ICD-10 - M20.42) Response to treatment,Impro vement Plan Of Treatment Pending Test Test Name Order Date 53452-[id number] NAIL, 6 OR MORE 01/04/2024 06573-CPLW SKIN LESIONS, OVER 4 01/04/20 24 Next Appt Details Follow Up: prn, Reason: Provider Name:Erasto Delfino Carleen , 07/04/2024 01:00:00 PM, [address] [facility], [place] [address], [place], [address], Procedure Notes * Category Sub-Category Detail Notes Debride Nail 6-10 Nail debridement Performance o f this nail treatment by a nonprofessional would put this patients foot and overall health at risk. Therefore, nail debridement was performed extensively to reduce/remove overall nail length, girth, thickness, subungual debris, and necrotic tissue, by manual and/or electrical means through the use of a nail nipper and/or dremel-type grinder operator surface tool, to a more viable healthy nail plate or bed tissue 6-10. Silver nitrate used for any petechial bleeding as necessary. Definitive antifungal treatment options have been reviewed and discussed with the patient. The patient chooses, no pharmaceutical tx - 21971 Keratoma Treatment Parring or Cutting o f Benign Hyperkeratotic Lesion(s) (-57) More than 4 Lesions - The Benign hyperkeratotic lesions, as described above were pared, and/or cut utilizing a sterile 15 blade, tissue nippers, and/or dremel - 99932 , Q8 Progress Notes * Chris STAFFORD III HDOB:[birth year] (74 yo M)Acc No.[id number]:01/04/2024 Progress Note Patient:?KIKI NUNEZ Chris H Provider:?Erasto Durant DPM :1950???Age:73 Y???Sex:Male Viraj e:01/04/2024 Address:[address] [place] [address], [facility] Pcp:Remy Medina Subjective: * Chief Complaints: * ???At Risk FootcarePainful N ail(s) aggrevated by shoes and causing difficulty standing/walkingToe Irritation * HPI: ???At Risk footcare:?Pt States Last PCP Visit:?Date?09/16/2023 ???Toe pain:?Treatments:?Rx shoes.? * ROS:?General/Constitutional:?Nausea?denies, denies.?Vomiting?denies, denies.?Hunger Thirst?denies, denies.?Loss appetite?denies, denies.?Chills?denies, denies.?Fatigue?denies, denies.?Fever?denies, denies.?Night Sweats denies, denies.?Unexplained weight loss?denies, denies.?Unexplained weight gain?denies, denies.?HEENTM:?Dentures?denies, denies.?Dizziness?denies, denies.?Glasses/contacts?denies, denies.?Retinopathy?denies, denies.?Blurred/double vision?denies, denies.?TMJ?denies, denies.?Discharge/drainage?denies, denies.?Implants?denies, denies.?Sore throat?denies, denies.?Dental implants?denies, denies.?Hard of hearing ?denies, denies.?Difficulty chewing/swallowing/speaking?admits, admits.?Nose bleeds?denies, denies.?Sore mouth?denies, denies.?Respiratory:?On Oxygen?denies, denies.?Pneumonia/pleurisy?denies, denies.?Bronchitis?denies, denies.?Emphysema?denies, denies.?Coughing?denies, denies.?Cough blood?denies, denies.?Shortness of breath?admits, admits.?Wheezing?denies, denies.?Cardiovascular:?Pacemaker?denies, denies.?MVP?denies, denies.?WPW?denies, denies.?CHF?denies, denies.?Heart attack?denies, denies.?Septal defect?denies, denies.?Rapid beat?denies, denies.?Chest pain ?denies, denies.?Atrial Fib.?denies, denies.?Murmur/Palpitations?denies, denies.?Gastrointestinal:?Hemorrhoids?denies, denies.?Stomach/Abdominal pain?admits, admits.?Dark blood stool?denies, denies.?Irritable bowel ?denies, denies.?Constipation?denies, denies.?Diarrhea?denies, denies.?Hematology:?Swelling?admits, admits.?Clots?denies, denies.?Varicose Veins?denies, denies.?Bruising?denies, denies.?Bleeding problem?denies, denies.?Genitourinary:?Blood urine?denies, denies.?Frequent/Painfu/urination/bladder control?denies, denies.?Kidney stones?denies, denies.?Infection (UTI)?denies, denies.?Nephropathy?denies, denies.?sex trans dis (STD)?denies, denies.?Prostate?denies, denies.?Musculoskeletal:?Hammertoes?admits, admits.?Bunions?denies, denies.?Back Pain?denies, denies.?Muscle Cramps/ Resting?denies, denies.?Muscle cramps / walking?denies, denies.?Generalized aches and pains?denies, denies.?Weakness?denies, denies.?Integ.:?Arzate?denies, denies.?Scars?denies, denies.?Corns/calluses?admits, admits.?Ingrown nails?admits, admits.?Painful nails?admits, admits.?Open Sores?denies, denies.?Rashes?denies, denies.?Neurologic:?Difficulty sleeping?admits, admits.?Brain disorder?denies, denies.?Numbness?denies, denies.?Balance trouble?admits, admits.?Confusion?denies, denies.?Fainting/blackouts?denies, denies.?Tingling?denies, denies.?Tremors?denies, denies.? * Medical History:? * Surgical History:?Polio 1961 , 1968pulmonary surgery 11/2018 * Hospitalization/Major Diagno stic Procedure:?Echocardiogram 04/25/18 * Family History:?Mother: dece ased.?Father: alive.?Spouse: alive.? * Social History:?Tobacco Use:?Tobacco Use/Smoking?Are you a:?nonsmoker ?Additional Findings: Tobacco Non-User?Current non-smoker ?Tobacco use other than smoking?Are you an other tobacco user??No ???Drugs/Alcohol:?Drugs?Have you used drugs other than those for medical reasons in the past 12 months??No ?Alcohol Screen?Did you have a drink containing alcohol in the past year??No ?Points?0 ?Interpretation?Negative ???Miscellaneous:?Caffeine: yes, frequency:, 2-3 cups per day. ?Children: yes, 3. ?Exercise: yes, walking,cooking shopping. ?Marital status: . ?Occupation: Retired Program Management Specialist. * Medications:?TakingOzempic F urosemide 20 MG Tablet [...] gies Verified] Objective: * Vitals:?Ht: 5ft 7in, Wt:200, BMI:31.32, Shoe size: 9-9.5, Ht-cm: 170.18 cm, Wt- k.72 kg. * ???Past Orders: ???Lab:HEMOGLOBIN A1C (GLYCO HEMOGLOBIN) (Order Date - 05/12/2023) (Collection Date & Time - 05/12/2023 02:16 PM) ? Value Reference Range ?HEMOGLOBIN A1C [...] Feet - Both legs are STILL, erythematous - again advised pt to check for cellulitis daily.?CLAUDICATION (C):?denies, B/L.?REST PAIN:?denies, B/L.?Nails: ?NAILS are:?Elongated, overgrown, dystrophic, lytic, greater than 3mm thick, discolored and friable with crumbly malodorous subungual debris, with pain on palpation , 1-5 B/L.?Dermatologic: ?SKIN FINDINGS:?Skin exam reveals Keratotic lesion(s) located at ,Dorsal, PIPJ,T9,SUB MTH (s),1,B/L,SUB MTH (s),5,Right,Heel(s),B/L.?Orthopedic: ?DIGITAL DEFORMITIES:?Digital contracture, PIPJ, 2-5 B/L, incompl-reducible to push-up test, no over, nor underlapping.?FOOTWEAR:?good condition, exhibit proper fit and accommodation for pedal deformities. OT were inspected and noted to be worn, but in good condition giving proper support at the present time.?Neurological: ?SENSORY:?Neurological exam reveals intact sensorium, pain sensation normal, vibration sensation intact, pinprick sensation is normal in the lower extremities, 5.07 monofilament test performed at plantar aspects of 5 varied sites per foot shows sensation, normal, B/L, Pt denies, anesthesia, burning, paresthesia, tingling, B/L.?General Examination: ?GENERAL APPEARANCE:?Reveals a pleasant, alert, well nourished, well- developed, well hydrated individual, who demonstrates proper attention to hygiene/body habitus, and is in no acute distress, Pt serves as own historian for office visit today.?ORIENTED:?person, place, and time.?FOOT EXAM:?Lower Extremity Neurological Exam performed:?Yes ?Visual exam of foot performed:?Yes ?Date?01/04/2024 ?Footwear Evaluation?Footwear Evaluation performed:?Yes??? Assessment: * Assessment: 1.?Type 2 diabetes mellitus with diabetic peripheral angiopathy without gangrene - E11.51???2.?Tinea unguium - B35.1???3.?Pain in right toe(s) - M79.674???4.?Pain in left toe(s) - M79.675???5.?Other hammer toe(s) (acquired), right foot - M20.41???Specify :Chronic problem, Stable (1=3,2=4)???Notes :Response to treatment,Improvement???6.?Other hammer toe(s) (acquired), left foot - M20.42???Specify :Chronic problem, Stable (1=3,2=4)???Notes :Response to treatment,Improvement??? Plan: * Treatment: 2.?Tinea unguium?Procedure: 07529-WYHKCKE NAIL, 6 OR MORE * Procedures:?Debride Nail 6-10:?Nail debridement?Performance of this nail treatment by a nonprofessional would put this patients foot and overall health at risk. Therefore, nail debridement was performed extensively to reduce/remove overall nail length, girth, thickness, subungual debris, and necrotic tissue, by manual and/or electrical means through the use of a nail nipper and/or dremel-type grinder operator surface tool, to a more viable healthy nail plate or bed tissue 6-10. Silver nitrate used for any petechial bleeding as necessary. Definitive antifungal treatment options have been reviewed and discussed with the patient. The patient chooses, no pharmaceutical tx - 64216.?Keratoma Treatment:?Parring or Cutting of Benign Hyperkeratotic Lesion(s)?(-57) More than 4 Lesions - The Benign hyperkeratotic lesions, as described above were pared, and/or cut utilizing a sterile 15 blade, tissue nippers, and/or dremel - 77936 , Q8.? * Procedure Codes:?96127 DEBRI DE NAIL, 6 OR MORE, Modifiers: XS 17224 TRIM SKIN LESIONS, OVER 4, Modifiers: XS , Q8 * Preventive Medicine:? ??Counseling:?Discussion:?-13: Office or other outpatient visit for the evaluation and management of an established patient, which required a medically appropriate history and/or examination and LOW level of DECISION MAKING for: 1 STABLE ACUTE UNCOMPLICATED PROBLEM, 2 OR MORE MINOR PROBLEMS, OR 1 STABLE CHRONIC PROBLEM, THAT POSE(S) A LOW RISK FOR MORBIDITY/MORTALITY. The visit on the day of the encounter encompassed interpreting the data and educating the patient as to the nature of their condition, treatment options available according to their individual PMH, meds, allergies, and overall health/living conditions, as well as any potential risks or complications that may occur from a failure to adhere to, and participate in, the recommended course of therapy. The discussion included a complete verbal, and/or written explanation of the examination results, any x-rays taken, the proposed diagnosis, and outline of the treatment plan. A schedule for future care needs was also explained. The patient verbalized an understanding of the instructions at this time and agreed to be an active participant in their treatment. If the patient should think of any questions or concerns after the visit, I have encouraged the patient to call the office.?Shoe Gear Counseling:?Patient to obtain shoes hopefully soon, A thorough inspection of the patients Rxed shoegear and inserts was performed and findings communicated. We reviewed the many important medical advantages for adhering to regularly wearing these shoe and insert accomidative devices daily as well as reviewed the fact that a failure in accepting these recommedations may be deleterious, unable to prevent, and disadvantagely result in, many pedal complications such as skin irritation, skin ulceration, infection, and even loss of toe/foot/leg/or even their life. Time was also spent reviewing the proper footcare techniques including daily skin moisturization, daily foot inspection for any interruption in skin integrity, open lesions, or sign of infection such as redness/malodor/drainage/swelling as well as daily shoe inspection for the presence of internal foreign bodies and shoe as well as insert wear. Patient questions re: shoes, inserts, and self foot inspections were answered to their satisfaction as the patient verbally confirmed a full understanding of the above information.? ??Screening/Special Tests:?Fall Risk?Screening:?No falls in the past year ?FALLS: Screening for Future Fall Risk?Have you had any falls with injury in the past year??No * Follow Up:?prn * Images: * Sign off status: Completed true * Provider:?Erasto Durant DPM Date:?2023 Generated for Gloria figueroa/Yossi/Nevin on:?06/13/2024 12:21 PM EDT History and Physical Notes * HPI (History of Present Illness) Category Sub-Category Detail Notes Category Not es Toe pain Treatments: Rx shoes At Risk footcare Pt States Last PCP Visit: Date: Examination Category Sub-Category Detail Notes Category Not es Neurological SENSORY: Neurological exa m reveals intact sensorium, pain sensation normal, vibration sensation intact, pinprick sensation is normal in the lower extremities, 5.07 monofilament test performed at plantar aspects of 5 varied sites per foot shows sensation, normal, B/L, Pt denies, anesthesia, burning, paresthesia, tingling, B/L Dermatologic SKIN FINDINGS: Skin exam reveal s Keratotic lesion(s) located at ,Dorsal, PIPJ,T9,SUB MTH (s),1,B/L,SUB MTH (s),5,Right,Heel(s),B/L Orthopedic FOOTWEAR: good condition, exhibit proper fit and accommodation for pedal deformities. OT were inspected and noted to be worn, but in good condition giving proper support at the present time DIGITAL DEFORMITIES: Digital contracture , PIPJ, 2-5 B/L, incompl-reducible to push-up test, no over, nor underlapping General Examination GENERAL APPEARANCE: Reveals a pleasant, alert, well nourished, well-developed, well hydrated individual, who demonstrates proper attention to hygiene/body habitus, and is in no acute distress, Pt serves as own historian for office visit today FOOT EXAM: Lower Extremity Neurological Exa m performed:: Yes Visual exam of foot performed:: Yes Date: 01/04/2024 ORIENTED: person, place, and t ksenia Footwear Evaluation Footwear Evaluation performe d:: Yes Ophthalmology Referral DIABETES EYE EXAM Procedure Perform ed:: Yes ?Date of Exam Performed: 12/08/2023 Findings [...] Feet - Both legs are STILL, erythematous - again advised pt to check for cellulitis daily CLAUDICATION (C): denies, B/L REST PAIN: denies, B/L PIGMENTATION: rubrous, B/L Nails NAILS are: Elongated, overg rown, dystrophic, lytic, greater than 3mm thick, discolored and friable with crumbly malodorous subungual debris, with pain on palpation , 1-5 B/L
--- OUTSIDE RECORDS SUMMARY | 2024-06-13 12:21 | XMS_ITS ---
Author Organization [facility] Address [address] [place] [address] Care Team Providers Care Assembly Line Leader Name Role Phone Remy Medina Primary Care Provider Erasto Arora Unavailable [phone] REASON FOR VISIT Ciclopirox rx request Encounters Encounter Location Date Provider Diagnosis [address] [address] 04/16/2024 Erasto Durant Plan Of Treatment Next Appt Details Provider Name:Erasto Durant , 07/04/2024 01:00:00 PM, [address] [facility], [place] [address], [place], [address], Progress Notes * Chris STAFFORD III HDOB:[birth year] (74 yo M)Acc No.[id number]:04/16/2024 Patient:?Chris STAFFORD III :1950???Age:74 Y???Sex:Male Address:[address] [place] [address], [phone] * true * Date:? Generated for Printi ng/Faxing/eTransmitting on:?06/13/2024 12:20 PM EDT
--- OUTSIDE RECORDS SUMMARY | 2024-06-13 12:21 | XMS_ITS | Clinical Summary ---
Author Organization [facility] Address [address] [place] [address] Phone Care Team Providers Care Supervisor [employer]actor [employer] Name Role Phone Remy Medina MD Primary Care Provider [phone] Allergies No known active allergies Medications semaglutide (Ozempic) 1 mg/dose (2 mg/1.5 mL) injection pen Inject into the skin once a week. Active atorvastatin (LIPITOR) 20 mg tablet Take 1 tablet (20 mg total) by mouth 1 (one) time each day. Active furosemide (LASIX) 20 mg tablet Take 3 Tablets by mouth 2 times daily. 07/08/2020 Active PARoxetine (PAXIL) 10 mg tablet Take 1 tablet (10 mg total) by mouth 1 (one) time each day. Active Active Problems Problem Noted Date Diagnosed Date Right heart failure 10/21/2023 Pulmonary hypertension 07/08/2020 Overview (05/03/2024): Last Assessment & Plan: He is doing quite well. He is very happy with how he feels. He will continue following with Dr. Roger Sanders at [facility] for his pulmonary hypertension. Continue Lasix at the current dose. Sinus of Valsalva aneurysm 07/08/2020 Overview (05/03/2024): Last Assessment & Plan: 3.9 cm on echo from February 2021. Will update echo. Tricuspid valve regurgitation 07/07/2020 Overview (05/03/2024): Tricuspid valve regurgitation Last Assessment & Plan: -stable, will continue to monitor, continue lasix Encounters Date Type Department Care Team Description 05/18/2024 8:50 AM EST Office Visit [facility] [address] [address] Enoch Luu MD Pulmonary hypertension (CMS/HCC) (Primary Dx); Chronic right-sided heart failure (CMS/HCC) from Last 3 Months Family History Medical History Relation Name Comments Other: Other Father unknown heart p roblems Relation Name Status Comments Father Social History Tobacco Use Types Packs/Day Years Used Date Smoking Tobacco: Never Smokeless Tobacco: Never Alcohol Use Standard Drinks/Week Comments Not Currently 0 (1 standard drink = 0.6 oz pur e alcohol) Sex and Gender Information Value Date Recorded Sex Assigned at Not on file Legal Sex Male 4:11 PM EST Gender Identity Not on file Sexual Orientation Not on file Obstetrics History Last Filed Vital Signs Vital Sign Reading [...] Mass Index 31.95 05/18/2024 8:52 AM EST Plan of Treatment Upcoming Encounters Date Type Department Care Team (Late st Contact Info) Description 11/27/2024 2:30 PM EDT Office Visit [facility] [address] [facility] [address] [place] [phone] Enoch Luu MD [address] [facility] [address] [place] [address] Health Maintenance Due Date Last Done Comments DTaP,Tdap,and Td Vaccines (1 - Tdap) 02/15/1971 Pneumococcal Vaccine: 50+ Years (1 of 2 - PCV) 02/15/1971 Zoster Vaccines (1 of 2) 02/15/2002 RSV Immunization Patients 60+ Years Old (1 - Risk 60-74 years 1-dose series) 2012 Cholesterol Screening (Lipid Panel) 02/17/2022 Colorectal Cancer Screening: Colonoscopy 02/17/2022 Depression Screening 02/17/2022 Falls Risk Assessment 02/17/2022 Hepatitis C Screening 02/17/2022 Social Influencers of Health Screening 02/17/2022 Medicare Annual Wellness Visit 02/08/2023 02/08/2022 COVID-19 Vaccine ( season) 2023 06/28/2020, 06/08/2020 Influenza Vaccine Completed 01/18/2024, , 02/04/2021, Additional history exists HIB Vaccines Aged Out No longer eligi ble based on patient's age to complete this topic HPV Vaccines Aged Out No longer eligi ble based on patient's age to complete this topic Hepatitis A Vaccines Aged Out No long er eligible based on patient's age to complete this topic Hepatitis B Vaccines Aged Out No long er eligible based on patient's age to complete this topic IPV Vaccines Aged Out No longer eligi ble based on patient's age to complete this topic MMR Vaccines Aged Out No longer eligi ble based on patient's age to complete this topic Meningococcal ACWY Vaccine Aged Out N o longer eligible based on patient's age to complete this topic Meningococcal B Vacine Aged Out No lo nger eligible based on patient's age to complete this topic RSV Immunization Patients Under 20 months Aged Out No longer eligible based on patient's age to complete this topic Varicella Vaccines Aged Out No longer eligible based on patient's age to complete this topic Insurance MEDICARE [facility] Care Teams Supervisor [employer] Relationship Specialty Start Date End Date Remy Medina MD [address] [place] [phone] PCP - General Internal Medicine 07/08/20
== END 2024-06-13 11:16 | disposition home or self-care (01) ==
LOC: HO.HPS 10:31
PROVIDERS: PCP Internal Medicine; Visit Provider Hospitalist
DX: G14 Postpolio syndrome (principal); G47.33 Obstructive sleep apnea (adult) (pediatric); Z99.81 Dependence on supplemental oxygen; I27.20 Pulmonary hypertension, unspecified; J96.11 Chronic respiratory failure with hypoxia; J98.4 Other disorders of lung; G70.9 Myoneural disorder, unspecified; J30.0 Vasomotor rhinitis
CPT/HCPCS: 99214; G2211

== ENCOUNTER → 2024-06-13 10:31 | Outpatient (BNVA) | payer MEDICARE, SELFPAY | PROVIDERS: PCP Internal Medicine; Visit Provider Hospitalist | DX: I27.20 Pulmonary hypertension, unspecified (principal); J96.11 Chronic respiratory failure with hypoxia; J30.0 Vasomotor rhinitis; J98.4 Other disorders of lung; G70.9 Myoneural disorder, unspecified; G14 Postpolio syndrome; G47.33 Obstructive sleep apnea (adult) (pediatric); Z99.81 Dependence on supplemental oxygen | CPT/HCPCS: 99212 ==

== ENCOUNTER 2024-12-07 10:32 | Outpatient (AMB) | payer MEDICARE, SELFPAY ==
--- NOTE | 2024-12-07 10:33 | A.OFFVIS_ITS ---
Vital Signs 12/07/24 10:34 Height 5 ft 7 in Weight 197 lb 5.019 oz BMI 30.9 BP 142/78 H Blood Pressure Location Lt brachial Position Standing Pulse 103 H Pulse Source Pulse Oximeter Pulse Oximetry (%) 97 Oxygen Delivery Method Nasal Cannula Oxygen Flow Rate 2 Intake Visit Reasons: Pulmonary Hypertension Associate Professor Of English Required: No Accompanied by: Self / Same As Patient Allergies No Known Allergies Allergy (Verified 12/07/24 10:37) HPI Comments Details: The patient is a 74-year-old gentleman with a known history of Post-polio syndrome with right-sided weakness in addition to chronic restrictive lung disease and chronic respiratory failure currently on oxygen. The patient also has a history of obstructive sleep apnea and has been using and astral noninvasive ventilator at nighttime. Patient tolerated therapy well. He has been complaining worsening dyspnea on exertion. He does use a walker or cane. He also has a scooter and wheelchair at home. We did review his previous chest x-rays demonstrating scoliosis. Patient states that he also had multiple surgeries for scoliosis and for his other complications due to the polio. He had most of his surgeries at [facility] as a child. in addition to the scoliosis the patient also has an elevated rim diaphragm on the right side consistent with his neuromuscular disease. The patient also follows closely with Cardiology. There was a question of pulmonary hypertension. His last echocardiogram could not estimate the pressures. the patient has been having some difficulties expectorating. It is likely that the mucus plugging specially from the right lung has interfered with his respiratory capacity. The patient has tried different take need such as mono chest physical therapy in addition to an Acapella valve in the past. The patient will benefit from a percussion vest for better chest physical therapy to improve his lung capacity at this time. 08/11/2021 the patient is here for pulmonary follow-up visit. Overall he is doing about the same. He is using the percussion vest for mucus clearance. He should do this on a daily basis. We did review his chest x-ray demonstrating an elevated right hemidiaphragm with increased markings on the right lung with significant atelectasis. Also provided him with an incentive spirometer someone to try to expand the lung open as much as possible. Another option is a sip and puff device that he can connect to his noninvasive ventilator per the patient does uses noninvasive ventilator at nighttime in the therapy has been affecting beneficial and he is very adherent to it. At this point in taking needs it during the daytime and will hold off on the sip and puff based on the fact the patient is very mobile with his assist device. he did undergo pulmonary function studies demonstrating a significant restrictive process due to his neuromuscular disease. Due to that reason his diffusing capacity is decreased. His diffusing capacity almost corrects to normal when corrected for the alveolar volume. The patient continues uses oxygen with a portable oxygen concentrator with good effect. At this point there is no evidence of any CO2 narcosis. Will have to monitor closely his mentation and for the next visit will plan to request a venous gas. If the patient or his significant other notices any altered mental status prior to the next visit they are to call the office for an earlier evaluation specially to assess the CO2. In the meantime he did given information about pulmonary rehabilitation online. The going to look into it to start become more active with their respiratory strengthening. 02/02/2022 the patient is here for a pulmonary follow-up visit. Patient overall has been doing fairly well. He continues to have dyspnea on exertion. [id number] severity. Today he has been under more agitated. He also noticed that his heart rate has been climbing. No clear etiology for the tachycardia. He does uses noninvasive ventilator at nighttime with good effect. He does not always uses percussion vest. Although, the patient understands that this will help and provide better mucus clearance and good bronchopulmonary hygiene. He did have a venous CO2 done demonstrating chronic hypercarbic respiratory failure which appears to be well compensated with an elevated bicarbonate. We did review his last pulmonary function studies. The patient does have a severe restrictive ventilatory defect secondary to his neuromuscular disease. We again talked about pulmonary rehabilitation although this will be difficult for him to accomplish on a regular basis. Again, I reminded him to consider the online pulmonary rehabilitation. 07/28/2022 the patient is here for a pulmonary follow-up visit. Overall the patient has been doing much better. He has been working on weight loss and healthy eating. He is wearing his compression stockings. He is trying to exercise more regularly. He is using the noninvasive ventilator at nighttime. This has been affecting beneficial. He does use it for all night more than 4 hours a night and he does get supplies from the [employer]. The patient has not required any respiratory assistance during the daytime so we can hold off on the sip and puff. Otherwise patient is without any other complaints will plan to follow-up in about 8 months. If the patient has any issues prior to that he is to call the office for an earlier assessment. 02/02/2023 the patient is here for a pulmonary follow-up visit. The patient overall is in good spirits. Continues use the oxygen with good effect. The patient unfortunately had his portable oxygen concentrator breakdown. He is wondering if he can get a POC from his DME company. I did call his DME company and they do not supply them. Therefore he continue to use the oxygen tanks and will have to send his POC to the maker to see if they can fix it. He continues use a noninvasive ventilator at nighttime. This has been affecting beneficial. He has not been performing any exercise activity which I am concerned about. His total lung capacities already down to 44%. We talked about the importance of doing so. I did give him again the information about the online pulmonary rehabilitation. But, if this is effective patient should consider in-person studies. We plan to repeat his PFTs and ABG or venous gas in 6 months to assess his progress. 06/08/2023 the patient is here for a pulmonary follow-up visit. Overall he is doing well. He continues use the oxygen at 3 L. He also has been using noninvasive ventilator at nighttime with good effect. The patient is working on weight loss which is helping. We did review his recent pulmonary function studies. Appears that his FVC and FEV1 both improved suggesting that is restrictive lung disease is a little better. Although still severe. He also has a severe diffusion impairment secondary to the restriction. The patient will would benefit from pulmonary rehabilitation. He is post polio and does have his physical limitations but I do believe that building up his respiratory capacity and endurance will be very effective in further improving his lung capacity. The patient is agreeable at this time. We did look at the last blood gas. The patient does have some degree of hypercarbia. Will go ahead and repeat the blood gas later on after rehabilitation. Patient is using compression stockings which is helping his lower extremity edema. Overall he is doing well. Will follow-up in 6 months. 12/13/2023 the patient is here for a pulmonary follow-up visit. Overall he is doing well. He completed pulmonary rehabilitation. Although he needs to continue exercising on a regular basis at home. He did get some new orthotics and did have significant amount of weight loss in lower extremity edema has improved dramatically so the patient is able to do it a little better and safer. He is going to go for walks with his . I also did give her information about the online pulmonary rehab, pulmonary wellness that organ he is going to look into those programs in order to stay active with his lung. The patient also needs to continue with chest physical therapy. He does have percussion vest that he needs to use more regularly. The noninvasive ventilator at nighttime is very affecting beneficial. He uses it every night. And this will continue to use. He is going to go for blood work today and will see what his blood gas is doing to make sure that his CO2 is not any higher. The patient was seen by Cardiology. At least from a pulmonary standpoint the patient does have significant restrictive lung disease due to his neuromuscular disease although he is at a stable baseline. Will plan to follow-up in 6 months. The patient has any issues prior to that call for an earlier assessment. 06/13/2024 the patient is here for a pulmonary follow-up visit. Overall the patient actually been doing fairly good for from self. He has had some good amount of weight loss. He has also continued to exercise regularly. He already completed the pulmonary rehabilitation. He continues uses noninvasive ventilator at nighttime. His last blood gas was reassuring with CO2 still stable at 56 mmHg. His respiratory inhalers are stable. The patient has been evaluated by Cardiac surgery. He does have a aortic valve that is being monitor closely. He will probably undergo additional testing. If he were to need cardiac surgery the patient is medically optimized at this point and she will be able to tolerate anesthesia and surgery. Although, he does have increased risk with his history of hypercarbic respiratory failure in his restrictive lung disease could result in increased perioperative pulmonary complications. Therefore, if there is any alternative therapies that are nonsurgical that would be a better option for the patient. Will continue to monitor follow-up in 6-8 months. 12/07/2024 the patient is here for a pulmonary follow-up visit. Overall the patient has been doing well. He continues to stay active walking regularly. He has been using his noninvasive ventilator at nighttime. Will have to check his blood gas to make sure that his CO2 is stable case we have to adjust the mac zee. He does have underlying valvular disease with an aortic valve that may need to be intervened done. Will reach out to Cardiology at [facility] to make sure that they are aware that from our standpoint the patient may proceed with any catheterizations or moderate sedation is his respiratory status is stable at this time. He continues use oxygen with a pulse valve working very well for him. Overall he is in a good physical state from a pulmonary standpoint may be able to proceed with anesthesia and surgery at this time. The patient does have increased risk because of the hypercarbic respiratory failure so therefore monitoring closely the end-tidal CO2 while doing any kind of anesthesia will be helpful. Will continue the current respiratory therapy. Will try to reach out to his veterinary attendant office as the patient has been concerned because he tries to be very adherent to his doctors any became concerned because he received a letter from his primary volume cardiology office stating that he missed an appointment in making him aware that somebody else could use that appointment. However, the patient states that he was never given an appointment reminder for him to acknowledge that site. This resulted in significant frustration from the patient's standpoint. He will be reaching out to the cardiology office to speak somebody there. In the meantime I will request the records from Cardiology. Again, from my standpoint the patient may be able to proceed with anesthesia or any cardiac procedure that he may require this time as long as his end-tidal CO2 is being monitored throughout the procedure. 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 Chronic respiratory failure Deviated nasal septum Post-polio syndrome Obstructive sleep apnea Obesity Supplemental oxygen dependent Sinus of Valsalva aneurysm Tricuspid regurgitation Pulmonary hypertension Surgical History (Updated 06/16/21 @ 12:32 by Keila Saenz PA-C) History of tonsillectomy History of cardiac catheterization Social History Patient Tobacco Use Status: Never used Tobacco Review of Systems Const Denies headache(s) and Reports weight loss Eyes Denies change in vision ENT Denies headache(s) Card Denies chest pain, Denies dyspnea and Reports dyspnea on exertion Resp Denies cough, Denies dyspnea, Reports dyspnea on exertion and Denies wheezing GI Reports no additional complaints Musc Reports abnormal gait and Reports deformity Skin/Breast Denies rash Neuro Reports abnormal gait and Denies headache(s) Aller/Immun Denies wheezing Physical Exam Vital Signs: Last Vital Signs Pulse 103 H 12/07/24 10:34 BP 142/78 H 12/07/24 10:34 Pulse Ox 97 12/07/24 10:34 Oxygen Delivery Method Nasal Cannula 12/07/24 10:34 Oxygen Flow Rate 2 12/07/24 10:34 BMI result Body Mass Index 30.9 Const General: alert Neck Neck: Yes normal visual inspection, Yes full ROM and Yes no lymphadenopathy Chest Chest palpation & inspection: normal inspection of the chest Resp Effort & Inspection: normal respiratory effort Auscultation: diminished lung sounds Cardio Rate: tachycardic Rhythm: regular rhythm Heart sounds: S1 normal heart sound present and S2 normal heart sound present GI Palpation (GI): Soft to palpation and nontender Auscultation: normal bowel sounds Skin General skin exam: rashes and/or lesions noted Assessment & Plan Assessment & Plan (1) Post-polio syndrome: Code(s): G14 - Postpolio syndrome Category: Medical (2) Obstructive sleep apnea: Comment: ([facility] Sleep Test 08/16/18 - AHI 23.9) Code(s): G47.33 - Obstructive sleep apnea (adult) (pediatric) Category: Medical (3) Supplemental oxygen dependent: Code(s): Z99.81 - Dependence on supplemental oxygen Category: Medical (4) Pulmonary hypertension: Comment: WHO group 3 Code(s): I27.20 - Pulmonary hypertension, unspecified Category: Medical (5) Chronic respiratory failure: Code(s): J96.10 - Chronic respiratory failure, unspecified whether with hypoxia or hypercapnia Category: Medical Qualifiers: Respiratory failure complication: hypoxia Qualified Code(s): J96.11 - Chronic respiratory failure with hypoxia (6) Restrictive lung mechanics due to neuromuscular disease: Code(s): J98.4 - Other disorders of lung; G70.9 - Myoneural disorder, unspecified Category: Medical (7) Vasomotor rhinitis: Code(s): J30.0 - Vasomotor rhinitis Category: Medical (8) Pre-op chest exam: Code(s): Z01.811 - Encounter for preprocedural respiratory examination Category: Medical Plan The patient may proceed with anesthesia and cardiovascular procedure at this time. Medically stable from his pulmonary conditions. Need to monitor continu ous pox and end tidal Co2 due to his respiratory failure continue oxygen supplementation continue sleep, conserving device, POC noninvasive ventilator at nighttime repeat blood gas was ok PCO2 56mmHg continue percussion vest to provide better bronchopulmonary hygiene and improvement in his lung capacity continue ipratropium nasal spray for vasomotor rhinitis completed pulmonary rehabilitation in person, needs to continue exercise regimen follow-up in 6-8 months Orders: Orders Venous Blood Gas 12/07/24 J96.11 - Chronic respiratory failure with hypoxia Medications: Refilled ipratropium bromide 2 sprays intranasal TID PRN 15 mL 6RF for allergies Coding Level of Care Code Est Pt Level 4 (57529) Complex EM visit Add On G2211 Diagnoses Post-polio syndrome G14 Obstructive sleep apnea G47.33 Supplemental oxygen dependent Z99.81 Pulmonary hypertension I27.20 Chronic respiratory failure with hypoxia J96.11 Respiratory failure complication: hypoxia Restrictive lung mechanics due to neuromuscular disease J98.4; G70.9 Vasomotor rhinitis J30.0 Pre-op chest exam Z01.811 Time Spent (min) 17
[2024-12-07 10:34] VITALS: BP 142/78; PULSE 103; O2SAT 97; BMI 30.9
--- OUTSIDE RECORDS SUMMARY | 2024-12-07 11:11 | XMS_ITS | Clinical Summary ---
Author Organization [address] Address [address] [place] [phone] Phone Care Team Providers Care Key Filer Name Role Phone Remy Medina MD Primary Care Provider [phone] Allergies No known active allergies Medications semaglutide [...] Noted Date Diagnosed Date Right heart failure (CMS/HCC V24, CMS/HCC V28) 0 10/21/2023 Pulmonary hypertension (CMS/HCC V24, CMS/HCC V28 ) 07/08/2020 Overview (05/03/2024): Last Assessment & Plan: He is doing quite well. He is very happy with how he feels. He will continue following with Dr. Roger Sanders at [facility] for his pulmonary hypertension. Continue Lasix at the current dose. Sinus of Valsalva aneurysm 07/08/2020 Overview (05/03/2024): Last Assessment & Plan: 3.9 cm on echo from February 2021. Will update echo. Tricuspid valve regurgitation 07/07/2020 Overview (05/03/2024): Tricuspid valve regurgitation Last Assessment & Plan: -stable, will continue to monitor, continue lasix Encounters Date Type Department Care Team Description 12/05/2024 Telephone [facility] [address] [place] [address] Enoch Luu MD 11/30/2024 Telephone [facility] [address] [place] [address] Enoch Luu MD from Last 3 Months Family History Medical [...] 05/18/2024 8:52 AM EST Plan of Treatment Health Maintenance Due Date Last Done Comments DTaP,Tdap,and Td Vaccines (1 - Tdap) 02/15/1971 Pneumococcal Vaccine: 50+ Years (1 of 2 - PCV) 02/15/1971 Zoster Vaccines (1 of 2) 02/15/2002 RSV Immunization Adult Patients (1 - Risk 60-74 years 1-dose series) 2012 Colorectal Cancer Screening: Colonoscopy 02/17/2022 Falls Risk Assessment 02/17/2022 Hepatitis C Screening 02/17/2022 Social Influencers of Health Screening 02/17/2022 Medicare Annual Wellness Visit 02/08/2023 02/08/2022 Depression Screening 03/21/2024 COVID-19 Vaccine ( season) 2024 06/28/2020, 06/08/2020 Influenza Vaccine (#1) 2024 4, 02/08/2022, 02/04/2021, Additional history exists Cholesterol Screening (Lipid Panel) 06/20/2029 06/20/2024 HIB Vaccines Aged Out No longer eligi [...] age to complete this topic Meningococcal B Vaccine Aged Out No l onger eligible based on patient's age to complete this topic RSV Immunization Patients Under 20 months Aged Out No longer eligible based on patient's age to complete this topic Varicella Vaccines Aged Out No longer eligible based on patient's age to complete this topic Procedures Procedure Name Priority Date/Time Associated Diagnosis Comments LIPID PANEL WITH REFLEX TO DIRECT LDL Routine 06/20/2024 11:02 AM EDT Routine general medical examination at a health care facility Drug therapy Abnormal blood chemistry from Last 3 Months or Most Recently Relevant to Health Maintenance Results * (ABNORMAL) Lipid panel with reflex to direct LDL (06/20/2024 11:02 AM EDT) Cholesterol 179 0 - 200 mg/dL LAB CHEMISTRY METHOD 06/20/2024 10:46 PM EDT [facility] Triglycerides 192(H) 0 - 150 mg/dL LAB CHEMISTRY METHOD 06/20/2024 10:46 PM EDT [facility] HDL 37(L) >=40 mg/dL LAB CHEMISTRY METHOD 06/20/2024 10:46 PM EDT [facility] LDL Calculated 104(H) 0 - 100 mg/dL LAB CHEMISTRY METHOD 06/20/2024 10:46 PM EDT [facility] VLDL Cholesterol Isaías 38.4 mg/dL LAB CHEMISTRY METHOD 06/20/2024 10:46 PM EDT [facility] Non HDL Chol. (LDL+VLDL) 142 <145 mg/dL LAB CHEMISTRY METHOD 06/20/2024 10:46 PM EDT [facility] Chol/HDL Ratio 4.8(H) 0.0 - 4.4 LAB CHEMISTRY METHOD 06/20/2024 10:46 PM EDT [facility] Blood Venous blood specimen / Unknown Venipuncture / Unknown 06/20/2024 11:02 AM EDT 06/20/2024 12:05 PM EDT us Luiz [facility]OL[facility] LAB BLOOD ORDERABLES Final Res ult [facility] [address] [place] [address], from Last 3 Months or Most Recently Relevant to Health Maintenance Insurance MEDICARE [facility] Care Teams Key Filer Relationship Specialty Start Date End Date Remy Medina MD [address] [address] PCP - General Internal Medicine 07/08/20
--- OUTSIDE RECORDS SUMMARY | 2024-12-07 11:11 | XMS_ITS | Encounter Summary ---
Author Organization [facility] Address [address] [place] [address] Care Team Providers Care Bun Machine Operator Name Role Phone Remy Medina MD Primary Care Provider [phone] Encounter Details Date Type Department Care Team (Latest Contact Info) Description 02/20/2024 Lab Requisition [facility] - Main Lab [address] [place] [phone] Remy Medina MD 299 [facility] [address] [place] [phone] Type 2 diabetes mellitus without complications (CMS/HCC V24, CMS/HCC V28) Social History Tobacco Use Types Packs/Day Years [...] as of this encounter Plan of Treatment Not on file documented as of this encounter Procedures Procedure Name Priority Date/Time Associated Diagnosis Comments HEMOGLOBIN A1C Routine 02/20/2024 12:00 AM EST Type 2 diabetes mellitus without complications (CMS/HCC) documented in this encounter Results * (ABNORMAL) Hemoglobin A1c (02/20/2024 12:00 AM EST) Hemoglobin A1C 7.0(H) <6.5 % LAB CHEMISTRY METHOD 02/20/2024 8:52 PM EST [facility] Mean Bld Glu Estim. 154 mg/dL LAB CHEMISTRY METHOD 02/20/2024 8:52 PM EST [facility] Blood Venous blood specimen / Unknown 02/20/2024 02/20/2024 5:49 PM EST us Remy Medina MD LAB BLOOD ORDERABLES Final Res ult [facility] [address] [place] [address], documented in this encounter Visit Diagnoses Diagnosis Type 2 diabetes mellitus without complications (CMS/HCC V24, CMS/HCC V28) documented in this encounter Care Teams Bun Machine Operator Relationship Specialty Start Date End Date Remy Medina MD [address] [phone] PCP - General Internal Medicine 07/08/20 documented as of this encounter
--- OUTSIDE RECORDS SUMMARY | 2024-12-07 11:11 | XMS_ITS | Encounter Summary ---
Author Organization [facility] Address [address] [place] [address] Care Team Providers Care Hunter Guide Name Role Phone Remy Medina MD Primary Care Provider [phone] Reason for Visit * Reason Onset Date Comments Appointment 12/05/2024 Encounter Details Date Type Department Care Team ([facility] st Contact Info) Description 12/05/2024 Telephone [facility] [address] [place] [address] [place] [address] Enoch Luu MD [address] [place] [address] [address] [place] [phone] Social History Tobacco Use Types Packs/Day Years [...] on file documented as of this encounter Progress Notes * Luiz Fuller - 12/05/2024 3:48 PM EDT Transferred to [place], patient wanting to speak with a precipitator supervisor instead. * Otilia Tobias - 12/05/2024 9:11 AM EDT Patient called frustrated. He would like to speak with mortgage loan officer. He states he was not informed of the appointment that was scheduled for 11/27/24. He believes he should not have received a no show letter. Please advise. Best call back number is [phone] documented in this encounter Plan of Treatment Not on file documented as of this encounter Visit Diagnoses Not on filedocumented in this encounter Care Teams Hunter Guide Relationship Specialty Start Date End Date Remy Medina MD [address] [place] [phone] PCP - General Internal Medicine 07/08/20 documented as of this encounter
--- OUTSIDE RECORDS SUMMARY | 2024-12-07 11:11 | XMS_ITS ---
Author Name [facility] Organization Unknown Encounters Encounter Type Encounter Reason Primary Diagnosis Location Date Ambulatory [facility] ical Group 01/17/2024 Care Team Organization Name Specialty Phone Email Start Date End Da te [facility] 2024 [facility] 10/06/2023 [facility] 01/26/2022
== END 2024-12-07 10:57 | disposition home or self-care (01) ==
LOC: HO.HPS 10:33
PROVIDERS: PCP Internal Medicine; Visit Provider Hospitalist
DX: G14 Postpolio syndrome (principal); G47.33 Obstructive sleep apnea (adult) (pediatric); Z99.81 Dependence on supplemental oxygen; I27.20 Pulmonary hypertension, unspecified; J96.11 Chronic respiratory failure with hypoxia; J98.4 Other disorders of lung; G70.9 Myoneural disorder, unspecified; J30.0 Vasomotor rhinitis; Z01.811 Encounter for preprocedural respiratory examination
CPT/HCPCS: 99214; G2211

== ENCOUNTER → 2024-12-07 10:32 | Outpatient (BNVA) | payer MEDICARE, SELFPAY | PROVIDERS: PCP Internal Medicine; Visit Provider Hospitalist | DX: Z01.811 Encounter for preprocedural respiratory examination (principal); G14 Postpolio syndrome; G47.33 Obstructive sleep apnea (adult) (pediatric); I27.20 Pulmonary hypertension, unspecified; J96.11 Chronic respiratory failure with hypoxia; J98.4 Other disorders of lung; J30.0 Vasomotor rhinitis; G70.9 Myoneural disorder, unspecified; Z99.81 Dependence on supplemental oxygen | CPT/HCPCS: 99212 ==

== ENCOUNTER 2025-01-18 08:58 | Outpatient (REF) | payer MEDICARE, SELFPAY ==
[2025-01-18 09:35] LABS: Venous Blood Gas Refer to POC result
[2025-01-18 09:35] LABS: VBG HCO3 33 mmol/L (22-26); VBG O2 % Saturation 41.0 %
--- OUTSIDE RECORDS SUMMARY | 2025-01-18 09:35 | XMS_ITS | Clinical Summary ---
Author Organization [address] Address [address] [place] [phone] Phone Care Team Providers Care Automobile Body Repair Supervisor Name Role Phone Remy Medina MD Primary Care Provider [phone] Allergies No known active allergies Medications semaglutide (Ozempic) 1 mg/dose (2 mg/1.5 mL) injection pen Inject into the skin once a week. Active atorvastatin (LIPITOR) 20 mg tablet Take 1 tablet (20 mg total) by mouth 1 (one) time each day. Active PARoxetine (PAXIL) 20 mg tablet Take 1 tablet (20 mg total) by mouth 1 (one) time each day in the morning. Active furosemide (LASIX) 40 mg tablet Take 1 tablet (40 mg total) by mouth 1 (one) time each day. 90 tablet 3 5 Active furosemide (LASIX) 20 mg tablet Take 1 tablet (20 mg total) by mouth 1 (one) time each day. 1 01/10/20 25 Discontinu ed(Prescri stephenie Discontinu ed) PARoxetine (PAXIL) 10 mg tablet Take 1 tablet (10 mg total) by mouth 1 (one) time each day. 01/09/20 25 Discontinu ed(Prescri stephenie Discontinu ed) Active Problems Problem Noted Date Diagnosed Date Right heart failure (CMS/HCC V24, CMS/HCC V28) 0 10/21/2023 Assessment & Plan (01/08/2025 12:01 PM EDT): Orders: ECG 12 lead Transthoracic echocardiogram (TTE) complete with PRN contrast, bubble, strain, and 3D order panel; Future Pulmonary hypertension (CMS/HCC V24, CMS/HCC V28 ) 07/08/2020 Overview (05/03/2024): Last Assessment & Plan: He is doing quite well. He is very happy with how he feels. He will continue following with Dr. Roger Sanders at [place] for his pulmonary hypertension. Continue Lasix at the current dose. Sinus of Valsalva aneurysm 07/08/2020 Overview (05/03/2024): Last Assessment & Plan: 3.9 cm on echo from February 2021. Will update echo. Tricuspid valve regurgitation 07/07/2020 Overview (05/03/2024): Tricuspid valve regurgitation Last Assessment & Plan: -stable, will continue to monitor, continue lasix Encounters Date Type Department Care Team Description 01/09/2025 Telephone [facility] [address] [place] [address] Enoch Luu MD 01/08/2025 10:50 AM EDT Office Visit [facility] [address] [place] [address] Enoch Luu MD Chronic right-sided heart failure (CMS/HCC V24, CMS/HCC V28) (Primary Dx) 01/07/2025 Telephone [facility] - [address] [place] [address] Enoch Luu MD 12/11/2024 [address] [facility] [address] [place] [address] Provider, Not In System 12/05/2024 [address] [facility] [address] [place] [address] Enoch Luu MD 11/30/2024 Telephone [facility] - [address] [place] [address] Enoch Luu MD from Last 3 Months [...] Sign Reading Time Taken Comments Blood Pressure 140/80 01/08/2025 10:52 AM EDT Pulse 102 01/08/2025 10:52 AM EDT Temperature - - Respiratory Rate - - Oxygen Saturation 97% 01/08/2025 10:52 AM EDT 3 L of oxygen Inhaled Oxygen Concentration - - Weight 88.9 kg (196 lb) 01/08/2025 10:52 AM EDT Height 170.2 cm (5' 7 ) 01/08/2025 10:52 AM EDT Body Mass Index 30.7 01/08/2025 10:52 AM EDT Plan of Treatment Upcoming Encounters Date Type Department Care Team (Late st Contact Info) Description 02/11/2025 12:30 PM EST Ancillary Procedure [facility] [address] [facility] [address] [place] [address] Health Maintenance Due Date Last Done Comments Colorectal Cancer Screening: Colonoscopy 1950 Diabetes: Annual Foot Exam 02/15/1962 Diabetes: Annual Retina Eye Exam 02/15/1962 Pneumococcal Vaccine: 50+ Years (1 of 2 - PCV) 02/15/1971 RSV Immunization Adult Patients (1 - Risk 50-74 years 1-dose series) 02/15/2002 Zoster Vaccines (1 of 2) 02/15/2002 Falls Risk Assessment 02/17/2022 Hepatitis C Screening 02/17/2022 Social Influencers of Health Screening 02/17/2022 Medicare Annual Wellness Visit 02/08/2023 02/08/2022 Depression Screening 03/21/2024 COVID-19 Vaccine ( season) 2024 06/28/2020, 06/08/2020 Influenza Vaccine (#1) 2024 , 02/08/2022, 02/04/2021, Additional history exists Diabetes: Annual Urine Albumin-Creatinine Ratio (uACR) 01/08/2025 Diabetes: Blood Sugar Control Test (HGBA1C) 01/08/2025 06/20/2024, 02/20/2024 Diabetes: Annual GFR (Glomerular Filtration Rate) 06/20/2025 06/20/2024 Hypertension/CHF/CAD Annual BMP Blood Test 06/20/2025 06/20/2024 Cholesterol Screening (Lipid Panel) 06/20/2029 06/20/2024 DTaP,Tdap,and Td Vaccines (2 - Td or Tdap) 08/17/2034 08/17/2024 HIB Vaccines Aged Out No longer eligi [...] Procedure Name Priority Date/Time Associated Diagnosis Comments ECG 12-LEAD Routine 01/08/2025 11:00 AM EDT Chronic right-sided heart failure (CMS/HCC V24, CMS/HCC V28) COMPREHENSIVE METABOLIC PANEL Routine 06/20/2024 11:02 AM EDT Routine general medical examination at a health care facility Drug therapy Abnormal blood chemistry HEMOGLOBIN A1C Routine 06/20/2024 11:02 AM EDT Routine general medical examination at a health care facility Drug therapy Abnormal blood chemistry LIPID PANEL WITH REFLEX TO DIRECT LDL Routine 06/20/2024 11:02 AM EDT Routine general medical examination at a health care facility Drug therapy Abnormal blood chemistry from Last 3 Months or Most Recently Relevant to Health Maintenance Results * ECG 12 lead (01/08/2025 11:00 AM EDT) Ventricular Rate ECG 101 BPM GEMUSE Atrial Rate 101 BPM GEMUSE P-R Interval 210 ms GEMUSE QRS Duration 114 ms GEMUSE Q-T Interval 356 ms GEMUSE QTc 461 ms GEMUSE P Wave [place] 41 degrees GEMUSE R [place] -56 degrees GEMUSE T [place] 50 degrees GEMUSE ECG Interpretation Sinus tachycardia with 1st degree A-V block Left anterior fascicular block Abnormal ECG When compared with ECG of 28-JUN-1996 14:04, VA interval has increased Left anterior fascicular block is now Present T wave inversion no longer evident in Inferior leads Confirmed by MD Jus, Enoch ([id number]) on 01/08/2025 1:49:37 PM GEMUSE 01/08/2025 11:0 0 AM EDT 01/08/2025 1:49 PM EDT us Enoch Luu MD ECG ORDERABLES Final Res ult GEMUSE * (ABNORMAL) Lipid panel with reflex to direct LDL (06/20/2024 11:02 AM EDT) Cholesterol 179 0 - 200 mg/dL LAB CHEMISTRY METHOD 06/20/2024 10:46 PM EDT [facility] Triglycerides 192(H) 0 - 150 mg/dL LAB CHEMISTRY METHOD 06/20/2024 10:46 PM EDT [facility] HDL 37(L) >=40 mg/dL LAB CHEMISTRY METHOD 06/20/2024 10:46 PM EDT [facility] LDL Calculated 104(H) 0 - 100 mg/dL LAB CHEMISTRY METHOD 06/20/2024 10:46 PM EDT [facility] VLDL Cholesterol Isaías 38.4 mg/dL LAB CHEMISTRY METHOD 06/20/2024 10:46 PM EDT [facility] Non HDL Chol. (LDL+VLDL) 142 <145 mg/dL LAB CHEMISTRY METHOD 06/20/2024 10:46 PM EDT [facility] Chol/HDL Ratio 4.8(H) 0.0 - 4.4 LAB CHEMISTRY METHOD 06/20/2024 10:46 PM EDT [facility] Blood Venous blood specimen / Unknown Venipuncture / Unknown 06/20/2024 11:02 AM EDT 06/20/2024 12:05 PM EDT us Luiz [facility]OL[facility] LAB BLOOD ORDERABLES Final Res ult Performing Organization Address City/[facility]/ZIP Co de Phone Number [facility] [address] [place] [address], [place] [phone] * (ABNORMAL) Hemoglobin A1c (06/20/2024 11:02 AM EDT) Hemoglobin A1C 6.5(H) <6.5 % LAB CHEMISTRY METHOD 06/20/2024 10:51 PM EDT [facility] Mean Bld Glu Estim. 140 mg/dL LAB CHEMISTRY METHOD 06/20/2024 10:51 PM EDT [facility] Blood Venous blood specimen / Unknown Venipuncture / Unknown 06/20/2024 11:02 AM EDT 06/20/2024 12:08 PM EDT us Luiz [facility]OLLEY LAB BLOOD ORDERABLES Final Res ult Performing Organization Address City/[facility]/ZIP Co de Phone Number [facility] [address] [place] [address], [place] [phone] * (ABNORMAL) Comprehensive metabolic panel (06/20/2024 11:02 AM EDT) Sodium 136 133 - 145 mmol/L LAB CHEMISTRY METHOD 06/20/2024 10:46 PM [facility] Potassium 3.6 3.5 - 5.5 mmol/L LAB CHEMISTRY METHOD 06/20/2024 10:46 PM [facility] Chloride 97 96 - 110 mmol/L LAB CHEMISTRY METHOD 06/20/2024 10:46 PM [facility] CO2 30 21 - 32 mmol/L LAB CHEMISTRY METHOD 06/20/2024 10:46 PM [facility] Anion Gap 9 3 - 11 LAB CHEMISTRY METHOD 06/20/2024 10:46 PM [facility] Glucose 154(H) 70 - 100 mg/dL LAB CHEMISTRY METHOD 06/20/2024 10:46 PM [facility] BUN 18 5 - 25 mg/dL LAB CHEMISTRY METHOD 06/20/2024 10:46 PM [facility] Creatinine 0.64(L) 0.70 - 1.30 mg/dL LAB CHEMISTRY METHOD 06/20/2024 10:46 PM [facility] eGFR 101 >=60 mL/min/1. 73m2 LAB CHEMISTRY METHOD 06/20/2024 10:46 PM [facility] Comment:Calculation based on the Chronic Kidney Disease Epidemiology Collaboration (CKD-EPI) equation refit without adjustment for race. BUN/Creatinine Ratio 28.1 LAB CHEMISTRY METHOD 06/20/2024 10:46 PM [facility] Calcium 9.2 8.5 - 10.5 mg/dL LAB CHEMISTRY METHOD 06/20/2024 10:46 PM [facility] AST (SGOT) 30 10 - 42 unit/L LAB CHEMISTRY METHOD 06/20/2024 10:46 PM [facility] ALT (SGPT) 48 10 - 60 unit/L LAB CHEMISTRY METHOD 06/20/2024 10:46 PM EDT [facility] Alkaline Phosphatase 85 42 - 121 unit/L LAB CHEMISTRY METHOD 06/20/2024 10:46 PM EDT [facility] Total Protein 7.5 6.0 - 8.0 g/dL LAB CHEMISTRY METHOD 06/20/2024 10:46 PM EDT [facility] Albumin 4.3 3.2 - 5.0 g/dL LAB CHEMISTRY METHOD 06/20/2024 10:46 PM EDT [facility] Total Bilirubin 0.6 0.0 - 1.4 mg/dL LAB CHEMISTRY METHOD 06/20/2024 10:46 PM EDT [facility] Blood Venous blood specimen / Unknown Venipuncture / Unknown 06/20/2024 11:02 AM EDT 06/20/2024 12:05 PM EDT Luiz [facility] LAB BLOOD ORDERABLES Final Res ult [facility] [address] [place] [address], from Last 3 Months or Most Recently Relevant to Health Maintenance Insurance [facility] Care Teams Automobile Body Repair Supervisor Relationship Specialty Start Date End Date Remy Medina MD [address] [place] [phone] PCP - General Internal Medicine 07/08/20
--- OUTSIDE RECORDS SUMMARY | 2025-01-18 09:35 | XMS_ITS | Encounter Summary ---
Author Organization [facility] Address [address] [place] [address] Care Team Providers Care Farm Manager Name Role Phone Remy Medina MD Primary Care Provider [phone] Encounter Details Date Type Department Care Team (Latest Contact Info) Description 02/20/2024 Lab Requisition [facility] - Main Lab [address] [facility] [place] [phone] Remy Medina MD 299 [facility] [address] [place] [phone] Type 2 diabetes mellitus without complications (CMS/HCC [...] Description 02/11/2025 12:30 PM EST Ancillary Procedure [facility] [address] [facility] [address] [place] [address] documented as of this encounter Procedures Procedure Name Priority Date/Time Associated Diagnosis Comments HEMOGLOBIN A1C Routine 02/20/2024 12:00 AM EST Type 2 diabetes mellitus without complications (CMS/[facility]) documented in this encounter Results * (ABNORMAL) Hemoglobin A1c (02/20/2024 12:00 AM EST) Hemoglobin A1C 7.0(H) <6.5 % LAB CHEMISTRY METHOD 02/20/2024 8:52 PM EST [facility] Mean Bld Glu Estim. 154 mg/dL LAB CHEMISTRY METHOD 02/20/2024 8:52 PM EST [facility] Blood Venous blood specimen / Unknown 02/20/2024 02/20/2024 5:49 PM EST us Remy Medina MD LAB BLOOD ORDERABLES Final Res ult [facility] [address] [place] [address], documented in this encounter Visit Diagnoses Diagnosis Type 2 diabetes mellitus without complications (CMS/HCC V24, CMS/HCC V28) documented in this encounter Care Teams Farm Manager Relationship Specialty Start Date End Date Remy Medina MD [address] [address] PCP - General Internal Medicine 07/08/20 documented as of this encounter
== END 2025-01-18 08:59 | disposition home or self-care (01) ==
LOC: HO.LAB 08:58
PROVIDERS: Visit Provider Hospitalist
DX: J96.11 Chronic respiratory failure with hypoxia (principal)
CPT/HCPCS: 36415; 82803